=== PATIENT | male | born 1975 | race Caucasian/White ===

== ENCOUNTER 2022-03-09 17:00 | Emergency (ER) | payer OTHER, SELFPAY ==
--- NOTE | ~2022-03-09 | XR_ITS ---
XR ankle RT min 3V 03/09/2022 17:16 Indication: Right ankle pain after fall Procedure: 4 views right ankle Comparison: 03/07/2014 Findings: No acute fracture, subluxation or dislocation. There is an accessory ossicle at the medial malleolus. Ankle mortise intact. No significant soft tissue abnormality. No foreign body. Impression: 1: No acute bone or joint abnormality. Reviewed, dictated and finalized at location A. Impression: 1: No acute bone or joint abnormality.
[2022-03-09 17:05] VITALS: BP 137/100; PULSE 78; RESP 16; TEMP 36.5; O2SAT 98
--- NOTE | 2022-03-09 17:22 | ED.LOWEXIN ---
HPI - Extremity Injury (Lower) General Chief Complaint: Extremity Injury, Lower Stated Complaint: Rt Ankle Pain Source: patient, RN notes reviewed and old records reviewed Mode of arrival: ambulatory Limitations: no limitations History of Present Illness HPI Narrative: 46 year old male presents to [facility] care with complaints of injury to his right ankle foot on Tuesday. Patient reports that he did not see the hole in the yard he was walking through and his foot turned in on itself. Patient reports that he is able to walk on his right foot without acute pain states mainly feels stiffness to his right lateral ankle and anterior proximal foot region. Patient has strong pulses to his right foot, nail beds have brisk capillary refill. Patient reports that he has rested his right foot and ankle and has used ice to his ankle and foot. MD complaint: ankle injury (lateral) and foot injury (proximal) Onset (ago): day(s) (3) Treatments prior to arrival: cold therapy and other (rest) Related Data Allergies Allergy/AdvReac Type Severity Reaction Status Date / Time No Known Allergies Allergy Verified 03/09/22 17:09 Review of Systems Review of Systems: CONSTITUTIONAL: Denies fever, chills, or sweats. EYES: Denies visual changes, redness, or discharge. ENT: Denies rhinorrhea, congestion, sore throat, or otalgia. CARDIOVASCULAR: Denies chest pain, palpitations, or edema. RESPIRATORY: Denies cough or dyspnea. GASTROINTESTINAL: Denies abdominal pain, nausea, vomiting, or diarrhea. GENITOURINARY: Denies dysuria or hematuria. SKIN: Denies rash or itching. MUSCULOSKELETAL: Denies back pain,positive for right lateral ankle and proximal foot pain, stiffness and swelling., or myalgia. NEUROLOGIC: Denies headache, numbness, or weakness. PSYCHIATRIC: Denies anxiety or depression. All systems reviewed & are unremarkable except as noted in HPI and below PMFSH Past Medical History Medical History BMI 27.0-27.9,adult BMI 28.0-28.9,adult BMI 29.0-29.9,adult COVID Gout Surgical History Surgical History H/O wrist surgery History of eye surgery Family History Family History Father Atherosclerotic heart disease of nonautologous biological bypass graft Celiac disease Mother Hypertension Sibling No problems noted. 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 There is no relevant family history pertinent to the presenting complaint Exam Narrative: GENERAL: Well-appearing, well-nourished, and in no acute distress. HEAD: Normocephalic, atraumatic. EYES: PERRLA and EOMI. ENT: Nares clear, no rhinorrhea or epistaxis. Mucous membranes moist.TM's normal with good light reflex, throat pink with no lesions or exudates no tonsil swelling NECK: Supple.no lymphadenopathy CHEST: Clear to auscultation. No respiratory distress.SAO2 98% on room air HEART: Regular rate and rhythm. No murmur heard. Normal peripheral pulses. ABDOMEN: Soft, nontender, nondistended, normal active bowel sounds. EXTREMITIES: Normal range of motion. No edema. Minimal edema noted on palpation of lateral right ankle and proximal foot with full ROM noted, circulation and sensation is intact. SKIN: Warm, dry, no rash. NEURO: No focal deficits. Alert and oriented x3. Course Course Level of Care: Express Care Visit Vital Signs Vital signs: Vital Signs Temperature 36.5 C 03/09/22 17:05 P
[2022-03-09 17:44] VITALS: BP 160/100
== END 2022-03-09 17:44 | disposition home or self-care (01) ==
PROVIDERS: Emergency Provider Registered Nurse; PCP Family Medicine
DX: S93.401A Sprain of unspecified ligament of right ankle, initial encounter (principal); X50.9XXA Other and unspecified overexertion or strenuous movements or postures, initial encounter; M10.9 Gout, unspecified; Z86.16 Personal history of COVID-19; Z87.891 Personal history of nicotine dependence
CPT/HCPCS: 73610; 99213; G0463

== ENCOUNTER 2022-07-14 11:13 | Emergency (ER) | payer OTHER, SELFPAY ==
--- NOTE | ~2022-07-14 | XR_ITS ---
EXAMINATION: XR chest 2V 07/14/2022 11:59 INDICATION: Cough and chest pain PROCEDURE: 2 view chest COMPARISON: No prior studies for comparison. FINDINGS: The lungs are clear. The cardiomediastinal silhouette is within normal limits. There are no pleural effusions. There is no pneumothorax suspected. IMPRESSION: 1: NO ACUTE CARDIOPULMONARY DISEASE. Reviewed, dictated and finalized at location A. [place]
--- NOTE | 2022-07-14 11:25 | ED.URI ---
HPI - URI/Sore Throat General Chief Complaint: Upper Respiratory Infection Stated Complaint: cough,headache,fatigue,chest pain Time Seen by Provider: 07/14/22 11:24 Source: patient Mode of arrival: ambulatory Limitations: no limitations History of Present Illness HPI Narrative: Rasheed is a 46-year-old male patient presenting to the clinic today with complaints of headache, cough, fatigue, and chest pain that has been ongoing for 1 month. He reports Beginning this month he tested positive for influenza B and he has been feeling ill ever since. He reports his symptoms have improved but they kind of come and go. He reports mild headache, cough, feeling fatigue and some upper mid epigastric chest discomfort. States that there feels as though there is a pressure in this area. He denies any shortness of breath or fever currently. MD elicited complaint: sore throat and nasal congestion Related Data Allergies Allergy/AdvReac Type Severity Reaction Status Date / Time No Known Allergies Allergy Verified 03/09/22 17:09 Review of Systems Review of Systems: Pertinent positives per HPI. Patient denies any fever, chills, rash, headache, visual changes, dizziness, shortness of breath, palpitations, nausea, vomiting, diarrhea, constipation, abdominal pain, or any urinary issues. [facility] Past Medical History Medical History BMI 27.0-27.9,adult BMI 28.0-28.9,adult BMI 29.0-29.9,adult COVID Gout Surgical History Surgical History H/O wrist surgery History of eye surgery Family History Family History Father Atherosclerotic heart disease of nonautologous biological bypass graft Celiac disease Mother Hypertension Sibling No problems noted. 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 There is no relevant family history pertinent to the patient complaint. Exam Narrative: General: Well-developed, well nourished, in no apparent distress Head: Normocephalic, atraumatic Eyes: Pupils equally round and reactive to light bilaterally, EOM intact, sclera and conjunctive clear, no discharge, lids normal Ears: TMs intact and clear, ear canals clear, no drainage, grossly hearing normal. Nose: Nares patent, clear discharge, no inflammation, no sinus tenderness. Mouth: Oral pharynx without lesions or masses, good dentition, MMM. postnasal drip Neck: Supple, trachea midline, no enlargement of anterior or posterior cervical nodes, no thyroid masses or goiter palpable. Cardio: Regular rate and rhythm, s1 and s2 normal, no murmur appreciated. Resp: Faint crackle in the right lower base otherwise clear, no rhonchi, rales, wheezing or rubs Course Course Emergency Course: Portions of this record may have been created with voice recognition software. Level of Care: Express Care Visit Vital Signs Vital signs: Vital Signs Temperature 36.9 C 07/14/22 11:36 Pulse Rate 73 07/14/22 11:36 Respiratory Rate 18 07/14/22 11:36 Blood Pressure 148/97 H 07/14/22 11:36 Pulse Oximetry 100 07/14/22 11:36 Oxygen Delivery Room Air 07/14/22 11:36 Temperature 36.9 C 07/14/22 11:36 Pulse Rate 73 07/14/22 11:36 Respiratory Rate 18 07/14/22 11:36 Blood Pressure 148/97 H 07/14/22 11:36 Pulse Oximetry 100 07/14/22 11:36 Oxygen Delivery Room Air 07/14/22 11:36 Vital signs reviewed MDM - UR
[2022-07-14 11:36] VITALS: BP 148/97; PULSE 73; RESP 18; TEMP 36.9; O2SAT 100
--- NOTE | 2022-07-14 11:51 | ECG_ITS ---
Measurements Intervals [place] Rate: 66 P: 44 [place]: 173 QRS: -19 QRSD: 144 T: 102 QT: 413 QTc: 433 Interpretive Statements SINUS RHYTHM LEFT BUNDLE BRANCH BLOCK ABNORMAL ECG NO PREVIOUS ECG AVAILABLE FOR COMPARISON Electronically Signed On 07-14-2022 12:39:11 LICENSED [employer] by El Dent D.O.
== END 2022-07-14 12:23 | disposition home or self-care (01) ==
PROVIDERS: Emergency Provider Nurse Practitioner Family; PCP Family Medicine
DX: G93.31 Postviral fatigue syndrome (principal); R05.9 Cough, unspecified; I44.7 Left bundle-branch block, unspecified; Z87.891 Personal history of nicotine dependence; M10.9 Gout, unspecified; Z86.16 Personal history of COVID-19
CPT/HCPCS: 71046; 93005; 99213; G0463

== ENCOUNTER 2022-12-18 12:52 | Emergency (ER) | payer OTHER, SELFPAY ==
--- NOTE | ~2022-12-18 | XR_ITS ---
EXAMINATION: XR ankle LT min 3V DATE: 12/18/2022 13:11 INDICATION: Left ankle injury and pain. TECHNIQUE: 4 views of left ankle were obtained. COMPARISON: None. FINDINGS: Bone alignment is normal. No fracture. Joint spaces are normal. There is an enthesophyte at posterior aspect of calcaneal tuberosity. There is ankle soft tissue swelling. IMPRESSION: 1. No fracture. Reviewed, dictated and finalized at location A. IMPRESSION: 1. No fracture.
--- NOTE | 2022-12-18 13:00 | ED.GENADULT ---
HPI - General Adult General Chief complaint: Extremity Injury, Lower Stated complaint: Lt Ankle Pain Time Seen by Provider: 12/18/22 13:01 Source: patient Mode of arrival: ambulatory Limitations: no limitations History of Present Illness HPI narrative: 47-year-old male patient presents to [facility] with complaints of left ankle pain. Patient states he stepped on an uneven surface yesterday and rolled his ankle. Patient states he did fall denies hitting his head or loss of consciousness. Patient states he has taken some ibuprofen for the pain and did ice it last night and this morning. Related Data Allergies Allergy/AdvReac Type Severity Reaction Status Date / Time No Known Allergies Allergy Verified 12/18/22 12:54 Review of Systems Review of Systems: CONSTITUTIONAL: Denies fever, chills, or sweats. EYES: Denies visual changes, redness, or discharge. ENT: Denies rhinorrhea, congestion, sore throat, or otalgia. CARDIOVASCULAR: Denies chest pain, palpitations, or edema. RESPIRATORY: Denies cough or dyspnea. GASTROINTESTINAL: Denies abdominal pain, nausea, vomiting, or diarrhea. GENITOURINARY: Denies dysuria or hematuria. SKIN: Denies rash or itching. MUSCULOSKELETAL: Denies back pain, joint pain, or myalgia. Positive left ankle pain NEUROLOGIC: Denies headache, numbness, or weakness. PSYCHIATRIC: Denies anxiety or depression. [facility] Past Medical History Medical History BMI 27.0-27.9,adult BMI 28.0-28.9,adult BMI 29.0-29.9,adult COVID Gout Surgical History Surgical History H/O wrist surgery History of eye surgery Family History Family History Father Atherosclerotic heart disease of nonautologous biological bypass graft Celiac disease Mother Hypertension Sibling No problems noted. 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 There is no relevant family history pertinent to the presenting complaint. Exam Narrative: GENERAL: Well-appearing, well-nourished, and in no acute distress. HEAD: Normocephalic, atraumatic. EYES: PERRLA and EOMI. ENT: Nares clear, no rhinorrhea or epistaxis. Mucous membranes moist. NECK: Supple. No lymphadenopathy CHEST: Clear to auscultation. No respiratory distress. HEART: Regular rate and rhythm. No murmur heard. Normal peripheral pulses. ABDOMEN: Soft, nontender, nondistended, normal active bowel sounds. EXTREMITIES: Patient is able to bear weight and ambulate with pain. The L ankle is without obvious asymmetry or deformity when compared to the R ankle. Patient can flex/extend, invert/fiona. No ecchymosis, soft tissue swelling noted to the lateral side of the left ankle. laura tenderness to palpation over the lateral malleolus. Anterior talofibular ligament, posterior talofibular ligament, calcaneofibular ligament nontender and without swelling. No tenderness or deformity of the midfoot or over the proximal fifth metatarsal. Good DP and posterior tibial pulses and sensation to light touch
[2022-12-18 13:01] VITALS: BP 136/89; PULSE 88; RESP 18; TEMP 36.6; O2SAT 99
== END 2022-12-18 13:25 | disposition home or self-care (01) ==
PROVIDERS: Emergency Provider Nurse Practitioner Family; PCP Family Medicine
DX: S93.402A Sprain of unspecified ligament of left ankle, initial encounter (principal); Z87.891 Personal history of nicotine dependence; X50.0XXA Overexertion from strenuous movement or load, initial encounter
CPT/HCPCS: 73610; 99213; G0463

== ENCOUNTER 2023-04-22 08:24 | Emergency (ER) | payer OTHER, SELFPAY ==
--- NOTE | 2023-04-22 08:28 | ED.URI ---
HPI - URI/Sore Throat General Chief Complaint: Upper Respiratory Infection Stated Complaint: Headahce,Fatigue,Congestion Time Seen by Provider: 04/22/23 08:40 Source: patient, RN notes reviewed and old records reviewed Mode of arrival: ambulatory Limitations: no limitations History of Present Illness HPI Narrative: 47-year-old male presents to the [facility] with complaints of headache, fatigue, congestion, decreased appetite, cough since Tuesday. Was exposed to COVID on Tuesday, day 4 days ago. Repeats feeling feverish. Has taken ibuprofen Onset (ago): day(s) (2) Consistency: constant Treatments prior to arrival: ibuprofen Related Data Allergies Allergy/AdvReac Type Severity Reaction Status Date / Time No Known Allergies Allergy Verified 04/22/23 08:29 Review of Systems Review of Systems: All systems reviewed & are unremarkable except as noted in HPI and below Constitutional: Constitutional: Reports as per HPI, Reports body ache(s), Reports fever(s) (Subjective), Reports headache(s) and Reports poor appetite Eyes: Eyes: Reports no additional eye complaints ENT: Reports as per HPI and Reports headache(s) Cardiovascular: Cardiovascular: Reports no additional cardiovascular complaints, Denies chest pain and Denies dyspnea Respiratory: Respiratory: Reports as per HPI, Denies chest congestion, Reports cough and Denies dyspnea Gastrointestinal: Gastrointestinal: Reports no additional gastrointestinal complaints, Denies abdominal pain, Denies nausea and Denies vomiting Musculoskeletal: Musculoskeletal: Reports no additional musculoskeletal complaints Integumentary/Breasts: Skin/Breast: Reports system reviewed and no additional complaints, except as docu Neurologic: Reports system reviewed and no additional complaints, except as documented Psychiatric: Psychiatric: Reports no additional psychiatric complaints Allergic/Immunologic: Allergic/Immunologic: Reports no additional allergic/immunologic complaints [facility] Past Medical History Medical History BMI 27.0-27.9,adult BMI 28.0-28.9,adult BMI 29.0-29.9,adult COVID Gout Surgical History Surgical History H/O wrist surgery History of eye surgery Family History Family History Father Atherosclerotic heart disease of nonautologous biological bypass graft Celiac disease Mother Hypertension Sibling No problems noted. 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 There is no relevant family history pertinent to the patient complaint. Exam Const: General: cooperative, comfortable, no acute distress, well developed, alert, ill appearing acutely (mild) and well nourished Nutritional Appearance: well nourished Orientation/consciousness: patient oriented x3 Limitations: no limitations HENMT: Head: normal to inspection Ears: hearing grossly normal bilaterally, external ears normal, TM's normal bilaterally, EAC's normal and mastoids normal Face/Nose/Sinus: Normal exter
[2023-04-22 08:45] VITALS: BP 143/90; PULSE 100; RESP 18; TEMP 37.2; O2SAT 100
== END 2023-04-22 09:25 | disposition home or self-care (01) ==
PROVIDERS: Emergency Provider Nurse Practitioner; PCP Family Medicine
DX: B34.9 Viral infection, unspecified (principal); Z20.822 Contact with and (suspected) exposure to COVID-19; Z87.891 Personal history of nicotine dependence; M10.9 Gout, unspecified; Z86.16 Personal history of COVID-19
CPT/HCPCS: 87426; 87804; 99213; C9803; G0463

== ENCOUNTER 2023-04-30 13:59 | Emergency (ER) | payer OTHER, SELFPAY ==
--- NOTE | ~2023-04-30 | XR_ITS ---
XR chest 2V DATE: 04/30/2023 14:32 INDICATION: Cough, congestion, shortness of breath TECHNIQUE: 2 views COMPARISON: 07/14/2022 2 view chest FINDINGS: There is patchy left lower lobe infiltrate consistent with left lower lobe pneumonia. There may be slight infiltrate or atelectasis at the right lung base. The remaining lung merchant appear ess entially clear. Normal heart size. No hilar or mediastinal enlargement. No pleural effusion or pulmonary vascular congestion or pneumothorax. IMPRESSION: Left lower lobe infiltrate Minimal infiltrate or atelectasis at right lung base Reviewed, dictated and finalized at location A.
[2023-04-30 14:12] VITALS: BP 111/90; PULSE 89; RESP 22; TEMP 36.4; O2SAT 95
--- NOTE | 2023-04-30 14:16 | ED.SOB ---
HPI - SOB/Dyspnea General Chief Complaint: Upper Respiratory Infection Stated Complaint: cough,chest pain,fatigue Time Seen by Provider: 04/30/23 14:15 Source: patient Mode of arrival: ambulatory Limitations: no limitations History of Present Illness HPI Narrative: Rasheed is a 47-year-old male patient presenting to the clinic today with complaints of cough, chest pain, and fatigue 2 weeks. Reports he came in on April 20 and was tested were COVID and flu and was negative at that time. States he has gradually gotten worse with now I productive cough, chest discomfort, and fatigue. SpO2 is 95-96 on room air. Is having to speak in short sentences Related Data Allergies Allergy/AdvReac Type Severity Reaction Status Date / Time No Known Allergies Allergy Verified 04/30/23 14:11 Review of Systems Review of Systems: Pertinent positives per HPI. Patient denies any fever, chills, rash, headache, visual changes, dizziness, cough, shortness of breath, chest pain, palpitations, nausea, vomiting, diarrhea, constipation, abdominal pain, or any urinary issues. [facility] Past Medical History Medical History BMI 27.0-27.9,adult BMI 28.0-28.9,adult BMI 29.0-29.9,adult COVID Gout Surgical History Surgical History H/O wrist surgery History of eye surgery Family History Family History Father Atherosclerotic heart disease of nonautologous biological bypass graft Celiac disease Mother Hypertension Sibling No problems noted. 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 There is no relevant family history pertinent to the patient complaint. Exam Narrative: General: Well-developed, well nourished, in no apparent distress Head: Normocephalic, atraumatic Eyes: Pupils equally round and reactive to light bilaterally, EOM intact, sclera and conjunctive clear, no discharge, lids normal Ears: TMs intact and clear, ear canals clear, no drainage, grossly hearing normal. Nose: Nares patent, clear discharge, no inflammation, no sinus tenderness. Mouth: Oral pharynx without lesions or masses, good dentition, MMM. Neck: Supple, trachea midline, no enlargement of anterior or posterior cervical nodes, no thyroid masses or goiter palpable. Cardio: Regular rate and rhythm, s1 and s2 normal, no murmur appreciated. Resp: Crackles to the lower posterior lung and inspiratory wheezing, no rubs Course Course Emergency Course: Portions of this record may have been created with voice recognition software. Level of Care: Express Care Visit Vital Signs Vital signs: Vital Signs Temperature 36.4 C L 04/30/23 14:12 Pulse Rate 89 04/30/23 14:12 Respiratory Rate 22 H 04/30/23 14:12 Blood Pressure 111/90 04/30/23 14:12 Pulse Oximetry 95 04/30/23 14:12 Oxygen Delivery Room Air 04/30/23 14:12 Temperature 36.4 C L 04/30/23 14:12 Pulse Rate 89 04/30/23 14:12 Respiratory Rate 22 H 04/30/23 14:12 B
== END 2023-04-30 14:55 | disposition home or self-care (01) ==
PROVIDERS: Emergency Provider Nurse Practitioner Family; PCP Family Medicine
DX: J18.9 Pneumonia, unspecified organism (principal); Z87.891 Personal history of nicotine dependence; M10.9 Gout, unspecified; Z86.16 Personal history of COVID-19
CPT/HCPCS: 71046; 99213; G0463

== ENCOUNTER 2023-05-02 14:13 | Emergency (ER) | payer OTHER, SELFPAY ==
[2023-05-02] VITALS (19 sets, daily range): BP systolic 122–142; BP diastolic 92–109; PULSE 77–97; RESP 10–24; TEMP 36.9; O2SAT 96–98
--- NOTE | ~2023-05-02 | XR_ITS ---
EXAMINATION: XR chest 2V DATE: 05/02/2023 15:01 INDICATION: Chest pressure. TECHNIQUE: Frontal and lateral views of the chest were obtained. COMPARISON: Chest 2 views 04/30/2023 FINDINGS: There are mild airspace opacities in left lower lung zone. No pleural effusion or pneumotho rax. The heart size is normal. IMPRESSION: 1. Persistent airspace opacities in left lower lung zone, consistent with atelectasis versus pneumoni a. Reviewed, dictated and finalized at location E. IMPRESSION: 1. Persistent airspace opacities in left lower lung zone, consistent with atele ctasis versus pneumonia.
--- NOTE | 2023-05-02 14:32 | ECG_ITS ---
Measurements Intervals [place] Rate: 90 P: 42 [place]: 166 QRS: -35 QRSD: 140 T: 111 QT: 368 QTc: 452 Interpretive Statements SINUS RHYTHM LEFT AXIS DEVIATION LEFT ATRIAL ENLARGEMENT LEFT BUNDLE BRANCH BLOCK ABNORMAL ECG COMPARED TO ECG 07/14/2022 11:50:28 LEFT-AXIS DEVIATION NOW PRESENT Electronically Signed On 05-02-2023 14:41:44 CDT by El Dent D.O.
[2023-05-02 14:52] LABS: Basophils Absolute Auto 0.1 K/mm3 (0.0-0.1); Basophils Percent Auto 0.7 % (0.2-1.2); Eosinophils Absolute Auto 0.1 K/mm3 (0-0.3); Eosinophils Percent Auto 1.6 % (0-4.4); Hematocrit 38.8 % (42.0-52.0); Hemoglobin 14.3 g/dL (14.0-18.0); Immature Granulocyte Absolute 0.07 K/mm3 (0.00-0.031); Immature Granulocyte Percent A 0.8 % (0-0.5); Lymphocytes Absolute Auto 1.94 K/mm3 (0.9-3.2); Lymphocytes Percent Auto 21.6 % (18.3-44.2); Mean Corpuscular HGB Conc 36.9 g/dl (32-36); Mean Corpuscular Hemoglobin 34.5 pg (26-34); Mean Corpuscular Volume 93.7 fl (80-100); Mean Platelet Volume 9.4 fl (7.4-10.4); Monocytes Absolute Auto 0.6 K/mm3 (0.1-0.6); Monocytes Percent Auto 6.4 % (2.6-8.5); Neutrophils Absolute Auto 6.2 K/mm3 (1.3-6.7); Neutrophils Percent Auto 68.9 % (45.5-73.1); Platelet Count Result 268 k/mm3 (150-375); Red Blood Count 4.14 M/mm3 (4.6-6.20); Red Cell Distribution Width 12.3 % (11.5-14.5)
[2023-05-02 15:03] LABS: Alanine Aminotransferase 58 U/L (6-50); Albumin Level 4.4 g/dL (3.5-5.1); Alkaline Phosphatase 67 U/L (38-126); Anion Gap 8 mmol/L (8-16); Aspartate Amino Transferase 39 U/L (17-59); Bilirubin,Total 0.7 mg/dL (0.2-1.3); Blood Urea Nitrogen 16 mg/dL (9-20); Calcium 9.4 mg/dL (8.4-10.2); Carbon Dioxide 28 mmol/L (22-30); Chloride 103 mmol/L (98-107); Estimated CRCL calculation 93 ml/min; Estimated Glomerular Filt Rate > 60; Glucose 111 mg/dL (65-110); Lipase 147 U/L (23-300); Potassium 4.2 mmol/L (3.4-5.0); Prothrombin Time 14.1 Seconds (11.1-14.7); Sodium 139 mmol/L (137-145)
[2023-05-02 15:04] LABS: Partial Thromboplastin Time 27.8 SECONDS (22.3-36.8)
[2023-05-02 15:15] LABS: Troponin I < 0.012 ng/mL (0.000-0.034)
--- NOTE | 2023-05-02 15:31 | ED.CHESTPAIN ---
HPI - Chest Pain General Chief Complaint: Chest Pain Stated Complaint: chest congestion, cough (diag w/ pneumonia Sat) Time Seen by Provider: 05/02/23 15:10 History of Present Illness HPI narrative: 47-year-old male with a history of hyperlipidemia hypertension reports for evaluation for chest pressure, cough and congestion x2 weeks. Patient states he began developing symptoms about 2 weeks ago, he went to urgent care 2 days ago and was diagnosed with pneumonia. He was prescribed azithromycin, albuterol and Augmentin which he has been taking. He has not missed any doses. He states he is feeling better today, however his advised him to come to the ED because of his history of a left bundle branch block and his concern for a cardiac etiology causing his symptoms. He states he was having shortness of breath that is also improved today. No aggravating or alleviating factors. He denies radiation of chest pain, pleuritic chest pain, associated nausea or vomiting, palpitations or syncope. He is scheduled to see a appraisal specialist in June for further evaluation of his left bundle branch block. He does report his dad has a history of CAD and MIs. Related Data Allergies Allergy/AdvReac Type Severity Reaction Status Date / Time No Known Allergies Allergy Verified 05/02/23 14:52 Review of Systems Review of Systems: CONSTITUTIONAL: Denies fever, chills EYES: Denies visual changes, redness, or discharge. ENT: Denies rhinorrhea, congestion, sore throat, or otalgia. CARDIOVASCULAR: See HPI RESPIRATORY see HPI GASTROINTESTINAL: Denies abdominal pain, nausea, vomiting, or diarrhea. GENITOURINARY: Denies dysuria or hematuria. SKIN: Denies rash or itching. MUSCULOSKELETAL: Denies back pain, joint pain, or myalgia. NEUROLOGIC: Denies headache, numbness, dizziness, or weakness. PSYCHIATRIC: Denies anxiety or depression. [facility] Past Medical History Medical History BMI 27.0-27.9,adult BMI 28.0-28.9,adult BMI 29.0-29.9,adult COVID Gout Surgical History Surgical History H/O wrist surgery History of eye surgery Family History Family History Father Atherosclerotic heart disease of nonautologous biological bypass graft Celiac disease Mother Hypertension Sibling No problems noted. 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 Patient resting comfortably in exam bed. He is pleasant and conversational. HEAD: Normocephalic EYES: PERRLA ENT: Nares clear. Mucous membranes moist. Oropharynx without tonsillar hypertrophy exudate or other lesions. NECK: Supple. CHEST: No respiratory distress. Rhonchi in the right lower lung field. Otherwise no adventitious breath sounds. HEART: Regular rate and rhythm. No murmur heard. Normal peripheral pulses. ABDOMEN: Soft, nontender, normal active bowel sounds. EXTREMITIES: Normal range of motion. No edema. SKIN: Warm, dry, no rash. NEURO: No focal deficits. Alert and oriented x3. PSYCH: Normal mood and affect. Course Vital Signs Vital s
[2023-05-02 18:10] LABS: Troponin I < 0.012 ng/mL (0.000-0.034)
== END 2023-05-02 18:44 | disposition home or self-care (01) ==
PROVIDERS: Preventive Medicine Aerospace Medicine; Emergency Provider Physician Assistant; PCP Family Medicine
DX: R07.89 Other chest pain (principal); J18.9 Pneumonia, unspecified organism; E78.5 Hyperlipidemia, unspecified; I10 Essential (primary) hypertension; I44.7 Left bundle-branch block, unspecified; M10.9 Gout, unspecified; Z86.16 Personal history of COVID-19; Z87.891 Personal history of nicotine dependence; R94.31 Abnormal electrocardiogram [ECG] [EKG]
CPT/HCPCS: 36415; 71046; 80053; 83690; 84484; 85025; 85610; 85730; 93005; 99284

== ENCOUNTER 2023-05-17 14:28 | Outpatient (CLI) | payer OTHER, SELFPAY ==
--- NOTE | ~2023-05-17 | XR_ITS ---
XR chest 2V DATE: 05/17/2023 14:46 INDICATION: Pneumonia TECHNIQUE: PA and lateral views COMPARISON: 05/02/2023 2 view chest FINDINGS: Diminished airspace opacities in the left lower lung suggesting interval improvement of lef t lower lobe infiltrate or atelectasis. The lungs otherwise appear clear. No pleural effusion or pulmonary vascular congestion or pneumothora x. Normal heart size. No hilar or mediastinal enlargement. IMPRESSION: Improvement of left lower lobe infiltrate or atelectasis since 05/02/2023 Reviewed, dictated and finalized at location L.
== END 2023-05-17 14:29 | disposition home or self-care (01) ==
PROVIDERS: PCP Family Medicine; Visit Provider Physician Assistant Medical
DX: J18.9 Pneumonia, unspecified organism (principal); R91.8 Other nonspecific abnormal finding of lung field
CPT/HCPCS: 71046

== ENCOUNTER 2023-05-17 16:26 | Emergency (ER) | payer OTHER, SELFPAY ==
[2023-05-17 17:01] VITALS: BP 123/82; PULSE 79; RESP 18; TEMP 36.6; O2SAT 97
--- NOTE | 2023-05-17 17:05 | ED.URI ---
HPI - URI/Sore Throat General Chief Complaint: Upper Respiratory Infection Stated Complaint: flu-like symptoms Source: patient Mode of arrival: ambulatory Limitations: no limitations History of Present Illness HPI Narrative: 47-year-old male who has been treated for pneumonia presented for complaint of cough, occasional wheezing, and feeling 'like breathing in a paper bag.' Symptoms worsening x3 days. Cough is worse at night and is keeping him awake. States symptoms started again after completing a course of steroids as prescribed by pcp, after completing Augmentin and Zpack. Also has albuterol inhaler and has been using it prn. Using incentive spirometer since dx pneumonia 04/30/23. Since then he has been compliant with meds as prescribed, and reports improvement in most symptoms. Cough is nonproductive. Denies fatigue, n/v/d/f/c. States he had CXR today as ordered by pcp, but is unable to be treated until seen by them next week. Related Data Allergies Allergy/AdvReac Type Severity Reaction Status Date / Time No Known Allergies Allergy Verified 05/10/23 07:42 Review of Systems Review of Systems: CONSTITUTIONAL: Denies body aches, fever, chills, or sweats. EYES: Denies visual changes, redness, or discharge. ENT: Denies rhinorrhea, congestion, sore throat, or otalgia. CARDIOVASCULAR: Denies chest pain, palpitations, or edema. RESPIRATORY: Reports cough, sob, wheezing. GASTROINTESTINAL: Denies abdominal pain, nausea, vomiting, or diarrhea. GENITOURINARY: Denies dysuria or hematuria. SKIN: Denies rash, itching, or wounds. MUSCULOSKELETAL: Denies back pain, joint pain, or myalgia. NEUROLOGIC: Denies headache, numbness, tingling, or weakness. All systems reviewed & are unremarkable except as noted in HPI and below PMFSH Past Medical History Medical History BMI 26.0-26.9,adult COVID Gout Surgical History Surgical History H/O wrist surgery History of eye surgery Family History Family History Father Atherosclerotic heart disease of nonautologous biological bypass graft Celiac disease Mother Hypertension Sibling No problems noted. 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 Please see nursing chart for further information. There is no relevant family history pertinent to the presenting complaint Exam Narrative: GENERAL: Well-appearing, in no acute distress. EYES: EOMI. No redness or drainage. Conjunctivae normal. ENT: Mucous membranes pink and moist. NECK: Normal AROM. Supple. CHEST: No respiratory distress. Scattered Faint insp/exp wheezing to right posterior merchant HEART: Regular rate and rhythm. No murmur appreciated. ABDOMEN: Soft, nontender, nondistended, normal active bowel sounds. EXTREMITIES: Normal range of motion. No edema. SKIN: Warm, dry, no rash. Capillary refill normal. Normal skin turgor. NEURO: Alert and oriented x3. Gait steady. PSYCH: Normal affect. Course
== END 2023-05-17 17:23 | disposition home or self-care (01) ==
PROVIDERS: Emergency Provider Nurse Practitioner Family; PCP Family Medicine
DX: J40 Bronchitis, not specified as acute or chronic (principal); Z87.891 Personal history of nicotine dependence
CPT/HCPCS: 71046; 99213; G0463

== ENCOUNTER 2023-09-27 17:22 | Emergency (ER) | payer OTHER, SELFPAY ==
--- NOTE | 2023-09-27 17:30 | ED.URI ---
HPI - URI/Sore Throat General Chief Complaint: Upper Respiratory Infection Stated Complaint: sorethroat Time Seen by Provider: 09/27/23 17:30 Source: patient Mode of arrival: ambulatory Limitations: no limitations History of Present Illness HPI Narrative: Patient is a 48-year-old male that presents with 1 week of congestion, productive cough, sore throat and sinus pressure. Has been taking Mucinex. Denies any fever, chills, nausea, vomiting, diarrhea. Related Data Home Medications Medication Instructions Recorded Confirmed amlodipine 5 mg tablet 5 mg PO DAILY 09/27/23 09/27/23 Allergies Allergy/AdvReac Type Severity Reaction Status Date / Time No Known Allergies Allergy Verified 09/27/23 17:35 Review of Systems Review of Systems: All systems reviewed & are unremarkable except as noted in HPI and below Constitutional: Constitutional: Denies body ache(s), Denies chills, Denies fatigue, Denies fever(s), Denies headache(s), Denies malaise and Denies weakness Eyes: Eyes: Denies blurry vision, Denies itchy eyes and Denies loss of vision ENT: Denies otalgia, Denies headache(s), Reports nasal congestion, Denies sinus pain, Reports sinus pressure and Reports sore throat Cardiovascular: Cardiovascular: Denies chest pain, Denies irregular heart rhythm and Denies dyspnea Respiratory: Respiratory: Reports cough and Denies dyspnea Gastrointestinal: Gastrointestinal: Denies abdominal pain, Denies diarrhea, Denies nausea and Denies vomiting Musculoskeletal: Musculoskeletal: Denies back pain, Denies myalgias and Denies arthralgias Integumentary/Breasts: Skin/Breast: Denies pruritus and Denies rash Neurologic: Denies headache(s), Denies loss of vision and Denies weakness Psychiatric: Psychiatric: Reports no additional psychiatric complaints Endocrine: Endocrine: Denies fatigue Allergic/Immunologic: Allergic/Immunologic: Denies itchy eyes PMFSH Past Medical History Medical History BMI 26.0-26.9,adult COVID Gout Surgical History Surgical History H/O wrist surgery History of eye surgery Family History Family History Father Atherosclerotic heart disease of nonautologous biological bypass graft Celiac disease Mother Hypertension Sibling No problems noted. 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 There is no relevant family history pertinent to the presenting complaint. Exam Const: General: cooperative, healthy appearing, comfortable, no acute distress and well nourished Nutritional Appearance: well nourished Orientation/consciousness: patient oriented x3 Limitations: no limitations HENMT: Head: normal to inspection, normocephalic and atraumatic Ears: hearing grossly normal bilaterally, external ears normal, TM's normal bilaterally, EAC's normal and no periauricular adenopathy Face/Nose/Sinus: Normal external nose present, Abnormal mucous membranes and turbinates present erythematous bilateral and diffuse, normal facial exam, sin
[2023-09-27 17:38] VITALS: BP 122/91; PULSE 78; RESP 16; TEMP 36.5; O2SAT 99
== END 2023-09-27 17:50 | disposition home or self-care (01) ==
PROVIDERS: Emergency Provider Nurse Practitioner Family
DX: J06.9 Acute upper respiratory infection, unspecified (principal); Z87.891 Personal history of nicotine dependence
CPT/HCPCS: 99213; G0463

== ENCOUNTER 2024-01-26 12:44 | Emergency (ER) | payer OTHER, SELFPAY ==
[2024-01-26 13:03] VITALS: BP 151/93; PULSE 72; RESP 18; TEMP 36.7; O2SAT 98
--- NOTE | 2024-01-26 13:25 | ED.URI ---
HPI - URI/Sore Throat General Chief Complaint: Upper Respiratory Infection Stated Complaint: Cold symptoms Time Seen by Provider: 01/26/24 13:18 Source: patient, RN notes reviewed and old records reviewed Mode of arrival: ambulatory Limitations: no limitations History of Present Illness HPI Narrative: 48-year-old male to Express Care with complaint of sore throat, headache, chest congestion, mild cough, and fatigue for 2-3 days. Patient has attempted to treat at home with Sudafed without relief. Patient endorses history of bronchitis, pneumonia, hypertension and high cholesterol. Patient endorses family history and concern regarding heart attack and stroke. Patient denies fever, known exposure to illness, tobacco use, allergies, shortness of breath, chest pain. Patient does endorse brief dizziness last night resolved. Respirations even and nonlabored. Patient able to speak in full sentences without difficulty. Patient hypertensive in triage. Related Data Home Medications Medication Instructions Recorded Confirmed amlodipine 5 mg tablet 5 mg PO DAILY 09/27/23 01/26/24 Allergies Allergy/AdvReac Type Severity Reaction Status Date / Time No Known Allergies Allergy Verified 01/26/24 13:13 Review of Systems Review of Systems: All systems reviewed & are unremarkable except as noted in HPI and below Constitutional: Constitutional: Reports as per HPI, Reports fatigue and Reports headache(s) Eyes: Eyes: Reports no additional eye complaints ENT: Reports as per HPI and Reports sore throat Cardiovascular: Cardiovascular: Reports no additional cardiovascular complaints, Denies chest pain and Denies dyspnea Respiratory: Respiratory: Reports no additional respiratory complaints, Reports chest congestion, Reports cough ( Nonproductive) and Denies dyspnea Musculoskeletal: Musculoskeletal: Reports no additional musculoskeletal complaints Neurologic: Reports system reviewed and no additional complaints, except as documented Psychiatric: Psychiatric: Reports no additional psychiatric complaints [facility] Past Medical History Medical History BMI 26.0-26.9,adult COVID Gout Surgical History Surgical History H/O wrist surgery History of eye surgery Family History Family History Father Atherosclerotic heart disease of nonautologous biological bypass graft Celiac disease Mother Hypertension Sibling No problems noted. 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 There is no relevant family history pertinent to the patient complaint. Exam Const: General: cooperative, no acute distress, well developed, alert, tired appearing, well groomed and well nourished Nutritional Appearance: well nourished Orientation/consciousness: patient oriented x3 Limitations: no limitations HENMT: Head: normal to inspection Ears: external ears normal, Abnormal EAC present and TM abnormal dull bilateral, erythematous on the left and wit
== END 2024-01-26 13:44 | disposition home or self-care (01) ==
PROVIDERS: Emergency Provider Nurse Practitioner Family; PCP Family Medicine
DX: H66.93 Otitis media, unspecified, bilateral (principal); Z20.822 Contact with and (suspected) exposure to COVID-19; Z87.891 Personal history of nicotine dependence; Z86.16 Personal history of COVID-19
CPT/HCPCS: 87081; 87426; 87804; 87880; 99213; G0463

== ENCOUNTER 2024-05-07 10:20 | Emergency (ER) | payer OTHER, SELFPAY ==
[2024-05-07 10:41] VITALS: BP 151/98; PULSE 64; RESP 18; TEMP 36.6; O2SAT 98
--- NOTE | 2024-05-07 11:06 | ED.URI ---
HPI - URI/Sore Throat General Chief Complaint: Upper Respiratory Infection Stated Complaint: cough/ headache Time Seen by Provider: 05/07/24 10:55 Source: patient and RN notes reviewed Mode of arrival: ambulatory Limitations: no limitations History of Present Illness HPI Narrative: Patient presents today complaining of 3 day history of sore throat, headache, dry cough, fatigue. Denies fever shortness of breath. He has been taking Yasemin-Nebo Plus and ibuprofen with mild relief. Daughter was diagnosed with mycoplasma pneumoniae upper respiratory infection a few days ago and has been in the hospital with Orthopedic surgery. Related Data Home Medications Medication Instructions Recorded Confirmed amlodipine 5 mg tablet 5 mg PO DAILY 09/27/23 01/26/24 Allergies Allergy/AdvReac Type Severity Reaction Status Date / Time No Known Allergies Allergy Verified 05/07/24 10:39 Review of Systems Review of Systems: CONSTITUTIONAL: Denies body aches, fever, chills, or sweats.+ fatigue EYES: Denies visual changes, redness, or discharge. ENT: Denies rhinorrhea, or otalgia.+ sore throat CARDIOVASCULAR: Denies chest pain, palpitations, or edema. RESPIRATORY: Denies dyspnea.+ cough GASTROINTESTINAL: Denies abdominal pain, nausea, vomiting, or diarrhea. GENITOURINARY: Denies dysuria or hematuria. SKIN: Denies rash, itching, or wounds. MUSCULOSKELETAL: Denies back pain, joint pain, or myalgia. NEUROLOGIC: Denies numbness, tingling, or weakness.+ headache PSYCH: Denies depression or anxiety. [facility] Past Medical History Medical History BMI 26.0-26.9,adult COVID Gout Surgical History Surgical History H/O wrist surgery History of eye surgery Family History Family History Father Atherosclerotic heart disease of nonautologous biological bypass graft Celiac disease Mother Hypertension Sibling No problems noted. 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 Please see nursing chart for further information. There is no relevant family history pertinent to the presenting complaint Exam Narrative: GENERAL: Mildly ill-appearing, well-nourished, and in no acute distress. HEAD: Normocephalic, atraumatic. EYES: EOMI. No redness or drainage. Conjunctivae normal. ENT: Mucous membranes pink and moist. Nares mildly congested. No rhinorrhea. TMs normal bilaterally. Throat normal. Uvula midline. NECK: Normal AROM. Supple. No lymphadenopathy. CHEST: No respiratory distress. Clear to auscultation. HEART: Regular rate and rhythm. No murmur appreciated. EXTREMITIES: Normal range of motion. No edema. SKIN: Warm, dry, no rash. Capillary refill normal. Normal skin turgor. NEURO: No focal deficits. Alert and oriented x3. Gait steady. PSYCH: Normal affect. No signs of depression or anxiety. Course Course Level of Care: Express Care Visit Vital Signs Vital signs: Vital Signs
[2024-05-07 11:07] LABS: EDCOVIDSCREEN Negative (Negative); EDINFLUASCREEN Negative (Negative); EDINFLUBSCREEN Negative (Negative)
[2024-05-07 11:08] LABS: EDSTREPNEGPOS1 Negative (Negative)
== END 2024-05-07 11:13 | disposition home or self-care (01) ==
PROVIDERS: Emergency Provider Nurse Practitioner
DX: J06.9 Acute upper respiratory infection, unspecified (principal); Z20.822 Contact with and (suspected) exposure to COVID-19; Z87.891 Personal history of nicotine dependence; M10.9 Gout, unspecified; Z86.16 Personal history of COVID-19
CPT/HCPCS: 87081; 87426; 87804; 87880; 99213; G0463

== ENCOUNTER 2025-02-12 16:58 | Emergency (ER) | payer OTHER, BC, SELFPAY ==
--- OUTSIDE RECORDS SUMMARY | 2025-02-12 17:00 | XMS_ITS | Patient Health Record ---
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 Diaz Asher Unavailable [phone] Komal Gates Unavailable [phone] Allergies No Known Allergies Reason For Referral No Information Medications Medication SIG (Take, Route, Frequency, Duration) Notes Start Date End Date Status Allopurinol 300 MG ; Duration: 90 Days Active Rosuvastatin Calcium 20 MG 1 tab(s) orally once a day; Duration: 30 day(s) 12/29/2023 Active amLODIPine Besylate 10 MG 1 tab(s) orall y once a day; Duration: 30 days 5 mg 12/29/2023 Active Metoprolol Succinate ER 25 MG ; Duration: 60 Days Not-Taki ng Benzonatate 100 MG ; Duration: 7 Days Not-Taking Social History Tobacco Use: Social History Observation Description Date Details (start date - stop date) Never Smoker NA - NA Smoking Smart Form: Question Answer Notes Are you a: never smoker Tobacco Control (Standard) Question Answer Notes Tobacco use: Nonsmoker Problems Problem Type SNOMED Code ICD Code Onset Dates Problem Status W/U Status Risk Notes Problem 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 Problem Chronic migraine without aura, non-refractory (disorder) (252011708998407 ) Migraine without aura, not intractable, without status migrainosus (G43.009) Active confirmed Problem Migraine with aura, not intractable, without status migrainosus (G43.109) Active confirmed Problem Chronic urate nephropathy (760960415) Gout due to renal impairment, multiple sites (M10.39) Active confirmed Encounters Encounter Location Date Provider Diagnosis [facility] [address] [place] [address] 04/12/2024 Diaz Celis Idiopathic orofacial dystonia G24.4 [facility] [address] [place] [address] 07/05/2024 Komal Gates Idiopathic orofacial dystonia G24.4 [facility] [address] [place] [address] 04/11/2024 Diaz Celis [facility] [address] [place] [address] 04/11/2024 Diaz Celis Assessments Encounter Date Diagnosis (ICD Code) Assessment Notes Treatment Notes Treatment Clinical Notes Section Notes 04/12/2024 Idiopathic orofacial dystonia (ICD-10 - G24.4) 07/05/2024 Idiopathic orofacial dystonia (ICD-10 - G24.4) Plan Of Treatment No Information Insurance Providers Payer Name Payer Address Payer Phone Subscriber Number Group Number Insured Name Patient Relationship to Insured Coverage Start Date Coverage End Date [id number] [address] [place] [address] [id number] Rasheed Payton Self - patient is the insured Medical (General) History Medical History History ICD Code Gout due to renal impairment, multiple s ites M10.39 Essential (primary) hypertension I10 Hyperlipidemia
--- OUTSIDE RECORDS SUMMARY | 2025-02-12 17:00 | XMS_ITS | Continuity of Care Document ---
Author Organization [facility] Address [address] [place] [address] Phone Care Team Providers Care House Manager Name Role Phone Tim Guidry MD Unavailable Unavailable Allergies, Adverse Reactions, Alerts Substance Reaction Status Criticality No Known Allergies Active No Inform ation Medications Medication Instructions Dosage Effective Dates (start - stop) Status Comments indomethacin 50 mg capsule take 1 capsule (50MG) by oral route 3 times every day with food 50 MG - Active allopurinol 100 mg tablet take 1 tablet (100MG) by oral route every day 100 MG - Active prednisone 20 mg tablet take 3 Tablet (60MG) by oral route every day 60 MG - Active Procedures Procedure Date OFFICE/OUTPATIENT VISIT, EST PREV VISIT, EST, AGE 18-39 Advance Directives Directive Yes / No Effective Date File Name No Information Encounters Encounter Description Practice Location Reason(s) For Visit Diagnoses Date Provider Providers Copied on Encounter [facility], [address] [place], [place], [id number], tel:[phone] [facility] No Information 4 Chao Dumont. [address], [id number] , [place]. tel:[phone] Referring Provider: Tim Guidry, [address] [facility], [place], [place], [id number]. tel:[phone] OFFICE/OUTPAT IENT VISIT, EST [facility], [address] [place], [place], [id number], tel:[phone] [facility] Medicine gout (chief complaint) HLP (chief complaint) Dietary surveillance and counselingGout, unspecifiedOther and unspecified hyperlipidemia 3 Chao Dumont. [address], [place], [place], [id number] , [place]. tel:[phone] Referring Provider: Shaggy Mena [address], [place], [place], [id number]. tel:[phone] PREV VISIT, EST, AGE 18-39 [facility], [address], [place], [place], [id number], [place] tel:[phone] [facility] Physical (chief complaint) Routine Medical ExamDietary surveillance and counselingRoutine Medical Exam 3 Chao Dumont. [address], [place], [place], [id number] , [place]. tel:[phone] Referring Provider: [facility] [place], [place], [id number]. tel:[phone] Family History Family Member Type Diagnosis Age At Onset Mother Problem (finding) Alive and well Father Problem (finding) Coronary artery disease Sister Problem (finding) Alive and well Payers Payer name Insurance type Covered democrat ID Authoriza tion(s) No Information Social History Type Description Quantity Date Captured Comments Sex Male Smoking Status No Information Chief Complaint And Reason For Visit No Information Plan Of Treatment Date Type Action Status Goal Tobacco cessation counseling completed History Of Present Illness Encounter Date Complaint History Of Prese nt Illness No Information Instructions Date Instruction Additional Infor priti Dietary counseling Related to Di etary surveillance counseling Decrease caloric intake Related to Dietary surveillance counseling Dietary counseling Related to Di etary surveillance counseling Decrease caloric intake Related to Dietary surveillance counseling Assessments Type Assessment Date No Information
--- OUTSIDE RECORDS SUMMARY | 2025-02-12 17:00 | XMS_ITS | Clinical Summary ---
Author Organization [facility] Address [address] [place] [address] [address] Team [address] Care Court Orderly Name Role Phone Paco Felix MD Primary Care Provider Allergies No known active allergies Medications rosuvastatin (CRESTOR) 20 mg tablet Take 1 tablet (20 mg total) by mouth daily Active allopurinoL (ZYLOPRIM) 300 mg tablet Take 1 tablet (300 mg total) by mouth daily Active lisinopriL (PRINIVIL,ZESTRI L) 10 mg tablet Take 1 tablet (10 mg total) by mouth daily 30 tablet 11 05/15/2024 5 Active amLODIPine (NORVASC) 5 mg tablet Take 1 tablet (5 mg total) by mouth daily 90 tablet 3 09/07/2024 6 Active Active Problems Problem Noted Date Diagnosed Date Hypertension 05/17/2024 Hyperlipidemia 05/17/2024 Obstructive sleep apnea 12/19/2023 Assessment & Plan (08/14/2024 9:42 AM COMPUTER TRAINER): The patient continue to wear his CPAP at auto titrating range of 5-20 cm water pressure while sleeping. His DME is [facility] home care. Assessment & Plan (12/19/2023 9:24 AM CDT): The patient continue to wear CPAP at auto titrating range of 5-20 cm water pressure while sleeping. His DME is [facility] home care. Abnormal EKG 07/19/2023 Resolved Problems Problem Noted Date Diagnosed Date Resolved Date Snoring 07/19/2023 12/19/2023 Assessment & Plan (09/15/2023 1:41 PM COMPUTER TRAINER): The patient presents with snoring and excessive daytime hypersomnia. I have recommended proceeding with a nocturnal polysomnogram with a split night protocol if necessary and no MSLT. He will follow up here in 3 months. Encounters Date Type Department Care Team Description 11/13/2024 8:30 AM CDT Office Visit [facility] Cardiology [address] [place] [address] Medical Office Building [address] [place] [address] Gael Mullen MD Hypertension (Primary Dx); Hyperlipidemia; Abnormal EKG from Last 3 Months Social History Tobacco Use Types Packs/Day Years Used Date Smoking Tobacco: Former Cigarettes Smokeless Tobacco: Never Tobacco Cessation:Counseling Given: Not Answered Sex and Gender Information Value Date Recorded Sex Assigned at Not on file Legal Sex Male 10:47 AM CDT Gender Identity Male 07/18/2023 7:46 AM COMPUTER TRAINER Sexual Orientation Straight 07/18/2023 7: 46 AM COMPUTER TRAINER Obstetrics History Last Filed Vital Signs Vital Sign Reading Time Taken Comments Blood Pressure 138/89 11/13/2024 8:29 AM CDT Pulse 87 11/13/2024 8:29 AM CDT Temperature 36.3 C (97.3 F) 08/14/2024 8:35 AM COMPUTER TRAINER Respiratory Rate 16 08/14/2024 8:35 AM COMPUTER TRAINER Oxygen Saturation 98% 11/13/2024 8:29 AM CDT Inhaled Oxygen Concentration - - Weight 91.8 kg (202 lb 6.4 oz) 11/13/2024 8:29 A M CDT Height 177.8 cm (5' 10) 11/13/2024 8:29 AM CDT Body Mass Index 29.04 11/13/2024 8:29 AM CDT Plan of Treatment Health Maintenance Due Date Last Done Comments Colon Cancer Screening-Colonoscopy 1976 Depression Screening 1976 Hepatitis C Screening 1976 Hepatitis B Screening 1994 Regular Well Visit/Exam 18-64 1994 Covid-19 Vaccine ( season) 2024 06/06/2023, 07/06/2022, 06/24/2021, Additional history exists Influenza Vaccine (Season Ended) 2025 06/06/2023, 07/06/2022, 06/11/2021, Additional history exists DTaP/Tdap/Td Vaccine (2 - Td or Tdap) 04/05/2027 04/05/2017 Pneumococcal vaccine <65 Aged Out 06/06/2023 No longer eligible based on patient's age to complete this topic Insurance [facility] [employer] [facility] [employer] Care Teams Court Orderly Relationship Specialty Start Date End Date Paco Felix MD PCP - General Family Medicine 07/25/23
--- OUTSIDE RECORDS SUMMARY | 2025-02-12 17:00 | XMS_ITS | Referral Summary ---
Author Organization [facility] Address [address] [place] [address] Care Team Providers Care Meat Processor Name Role Phone Paco Felix MD Primary Care Provider Encounters Date Type Department Care Team Description 11/13/2024 8:30 AM CDT Office Visit [facility] Cardiology [address] [place] [address] Medical Office [address] [place] [address] Gael Mullen MD Hypertension (Primary Dx); Hyperlipidemia; Abnormal EKG from Last 3 Months Allergies No known active allergies Medications rosuvastatin [...] 12/19/2023 Assessment & Plan (08/14/2024 9:42 AM CAN RUNNER): The patient continue to wear his CPAP at auto titrating range of 5-20 cm water pressure while sleeping. His DME is [facility] home care. Assessment & Plan (12/19/2023 9:24 AM CDT): The patient continue to wear CPAP at auto titrating range of 5-20 cm water pressure while sleeping. His DME is [facility] home care. Abnormal EKG 07/19/2023 Resolved Problems Problem Noted Date Diagnosed Date Resolved Date Snoring 07/19/2023 12/19/2023 Assessment & Plan (09/15/2023 1:41 PM CAN RUNNER): The patient presents with snoring and excessive daytime hypersomnia. I have recommended proceeding with a nocturnal polysomnogram with a split night protocol if necessary and no MSLT. He will follow up here in 3 months. Social History Tobacco Use Types Packs/Day Years Used Date Smoking Tobacco: Former Cigarettes Smokeless Tobacco: Never Tobacco Cessation:Counseling Given: Not Answered Sex and Gender Information Value Date Recorded Sex Assigned at Not on file Legal Sex Male 10:47 AM CDT Gender Identity Male 07/18/2023 7:46 AM CAN RUNNER Sexual Orientation Straight 07/18/2023 7: 46 AM CAN RUNNER Last Filed Vital Signs Vital Sign Reading Time Taken Comments Blood Pressure 138/89 11/13/2024 8:29 AM CDT Pulse 87 11/13/2024 8:29 AM CDT Temperature 36.3 C (97.3 F) 08/14/2024 8:35 AM CAN RUNNER Respiratory Rate 16 08/14/2024 8:35 AM CAN RUNNER Oxygen Saturation 98% 11/13/2024 8:29 AM CDT Inhaled Oxygen Concentration - - Weight 91.8 kg (202 lb 6.4 oz) 11/13/2024 8:29 A M CDT Height 177.8 cm (5' 10) 11/13/2024 8:29 AM CDT Body Mass Index 29.04 11/13/2024 8:29 AM CDT Plan of Treatment Not on file Insurance [facility] Care Teams Meat Processor Relationship Specialty Start Date End Date Paco Felix MD PCP - General Family Medicine 07/25/23
--- OUTSIDE RECORDS SUMMARY | 2025-02-12 17:06 | XMS_ITS | Clinical Summary ---
Author Organization [facility] Address [address] [place] [address] Care Team Providers Care Junior Programmer Analyst Name Role Phone Ron Castellanos MD Primary Care Provider [phone] Allergies No known active allergies Medications allopurinol (ZYLOPRIM) 300 MG tabletIndications: Gout, arthritis Take 1 tablet (300 mg total) by mouth daily. 90 tablet 1 01/24/20 25 Active amLODIPine (NORVASC) 10 MG tabletIndications: Primary hypertension Take 1 tablet (10 mg total) by mouth daily. 90 tablet 1 01/24/20 25 Active lisinopril (PRINIVIL) 10 MG tabletIndications: Primary hypertension Take 1 tablet (10 mg total) by mouth daily. 90 tablet 1 01/24/20 25 Active rosuvastatin (CRESTOR) 20 MG tabletIndications: Mixed hyperlipidemia Take 1 tablet (20 mg total) by mouth nightly at bedtime. 90 tablet 1 01/24/20 25 Active lisinopril (PRINIVIL) 10 MG tabletIndications: Primary hypertension Take 1 tablet (10 mg total) by mouth daily. 90 tablet 1 05/18/20 24 025 Discontin ued(Reord er) amLODIPine (NORVASC) 10 MG tabletIndications: Primary hypertension Take 1 tablet (10 mg total) by mouth daily. 90 tablet 1 05/18/20 24 025 Discontin ued(Reord er) nirmatrelvir & ritonavir 300/100 (PAXLOVID, 300/100,) 20 x 150 MG & 10 x 100MG tablet packIndications:UR TI (acute upper respiratory infection) Take TWO nirmatrelvir 150 mg tablet(s) along with ONE ritonavir 100 mg tablet, with all three tablets taken together, twice daily for 5 days. May take with or without food. Swallow tablets whole. Do not chew, break or crush.. 30 tablet 10/10/19 25 025 Discontin ued(Thera py completed ) rosuvastatin (CRESTOR) 20 MG tabletIndications: Mixed hyperlipidemia TAKE 1 TABLET(20 MG) BY MOUTH EVERY NIGHT AT BEDTIME 90 tablet 1 12/20/19 25 025 Discontin ued(Reord er) allopurinol (ZYLOPRIM) 300 MG tabletIndications: Gout, arthritis TAKE 1 TABLET(300 MG) BY MOUTH DAILY 90 tablet 01/09/20 25 025 Discontin ued(Reord er) Active Problems Problem Noted Date Diagnosed Date Positive colorectal cancer screening using Colog uard test 06/26/2024 Overweight (BMI 25.0-29.9) 05/18/2024 Gout, arthritis 05/18/2024 Mixed hyperlipidemia 05/18/2024 Primary hypertension 05/18/2024 Encounters Date Type Department Care Team Description 01/24/2025 - 01/24/2025 11:59 PM CDT Hospital Encounter [facility] [address] [address] Discharge Disposition: Home or Self Care (Routine Discharge) 01/24/2025 [facility] [place] [address] [address] [facility] [address] [place] [address] Ron Castellanos MD CBC W/DIFF AUTOMATED, URIC ACID BLOOD, VITAMIN D 25 OH, Additional followed-up results: 4 01/24/2025 [facility] Only [facility] [place] [address] [place], [place] [id number] Ron Castellanos MD 01/24/2025 MyChart Message Enc [facility] [place] [address] [place] [address] Ron Castellanos MD Blood 01/23/2025 3:40 PM CDT [facility] [place] [address] [address] [place] [address] Ron Castellanos MD Follow Up (History of LBBB); Hypertension; Gout; Hyperlipidemia 01/23/2025 Telephone [facility] [address] [place] [address] Ron Castellanos MD Follow Up 01/23/2025 Travel from Last 3 Months Family History Medical History Relation Comments Heart Disease Father Hypertension Mother Relation Status Comments Father Mother Social History Tobacco Use Types Packs/Day Years Used Date Smoking Tobacco: Former Cigarettes 0.5 15.5 2 010 - 1995 Smokeless Tobacco: Never Tobacco Cessation:Counseling Given: Yes Comments:Counseled by Dr. Castellanos. AUDIT-C Answer Date Recorded Q1: How often do you have a drink containing alc ohol? 2-4 times a month 10/10/2024 Q2: How many drinks containi ng alcohol do you have on a typical day when you are drinking? 1 or 2 10/10/2024 Q3: How often do you have si x or more drinks on one occasion? Never 10/10/2024 PHQ-2 Answer Date Recorded Patient Health Questionnaire-2 Score 0 10/10/2024 Sex and Gender Information Value Date Recorded Sex Assigned at Male 10/10/2024 1:36 PM CATIA DESIGNER Legal Sex Male 8:29 AM CDT Gender Identity Male 10/10/2024 1:36 PM CATIA DESIGNER Sexual Orientation Straight 10/10/2024 1: 36 PM CATIA DESIGNER Last Filed Vital Signs Vital Sign Reading Time Taken Comments Blood Pressure 125/89 01/23/2025 6:07 PM CDT Pulse 84 10/10/2024 1:32 PM CATIA DESIGNER Temperature 36.9 C (98.4 F) 10/10/2024 1:32 PM CATIA DESIGNER Respiratory Rate 18 10/10/2024 1:32 PM CATIA DESIGNER Oxygen Saturation 97% 10/10/2024 1:32 PM CATIA DESIGNER Inhaled Oxygen Concentration - - Weight 92.5 kg (204 lb) 01/23/2025 3:40 PM CDT Height 177.8 cm (5' 10) 10/10/2024 1:32 PM CATIA DESIGNER Body Mass Index 29.27 10/10/2024 1:32 PM CATIA DESIGNER Plan of Treatment Upcoming Encounters Date Type Department Care Team (Late st Contact Info) Description 07/24/2025 7:00 AM CATIA DESIGNER Office Visit [facility] Medical Group Multispecialty Care - [place] [address] [address] [place] [address] Ron Castellanos MD [address] [facility] [address] [place] [address] Health Maintenance Due Date Last Done Comments Hepatitis B Vaccines (1 of 3 - 19+ 3-dose series) 1995 COVID-19 Vaccine ( season) 2024 06/06/2023, 07/06/2022, 06/24/2021, Additional history exists Annual Physical 05/18/2025 05/18/2024 DTaP, Tdap and Td Vaccines (2 - Td or Tdap) 04/05/2027 04/05/2017 Colorectal Cancer Screening Colonoscopy (10 Years) 09/14/2034 09/14/2024 Pneumococcal Vaccine: Pediatrics (0 to 5 Years) and At-Risk Patients (6 to 49 Years) Aged Out 06/06/2023 No longer eligible based on patient's age to complete this topic Hepatitis C Completed 05/29/2024 Colorectal Cancer Screening FIT-DNA (3 Years) Discontinued 06/19/2024, 06/19/2024 PHQ-2 (Physician [place]) Completed 10/10/2024 Meningococcal B Vaccine Aged Out No l onger eligible based on patient's age to complete this topic Meningococcal Vaccine Aged Out No linda ana maria eligible based on patient's age to complete this topic RSV Immunizations Under 20 Months Aged Out No longer eligible based on patient's age to complete this topic Procedures Procedure Name Priority Date/Time Associated Diagnosis Comments URIC ACID BLOOD Routine 01/24/2025 6:53 AM CDT Drug therapy COMPREHENSIVE METABOLIC PANEL Routine 01/24/2025 6:53 AM CDT Drug therapy Chronic fatigue TSH W/REFLEX Routine 01/24/2025 6:53 AM CDT Drug therapy Chronic fatigue CBC W/DIFF AUTOMATED Routine 01/24/2025 6:53 AM CDT Drug therapy Chronic fatigue VITAMIN B-12 Routine 01/24/2025 6:53 AM CDT Drug therapy Chronic fatigue VITAMIN D, 25 OH Routine 01/24/2025 6:53 AM CDT Drug therapy Chronic fatigue TESTOSTERONE, TOTAL Routine 01/24/2025 6 :53 AM CDT Drug therapy Chronic fatigue COLOGUARD (EXACT SCIENCE) Routine 06/19/2024 8:30 AM CATIA DESIGNER Screen for colon cancer HEPATITIS C ANTIBODY Routine 05/29/2024 7:38 AM CDT Annual physical exam Establishing care with new doctor, encounter for General medical exam Encounter for hepatitis C screening test for low risk patient from Last 3 Months or Most Recently Relevant to Health Maintenance Results * TSH W/REFLEX (01/24/2025 6:53 AM CDT) TSH 2.242 0.358 - 3.740 uIU/ML 01/24/2025 4:40 PM CDT [facility] 01/24/2025 6:53 AM CDT Ron Castellanos MD LABORATORY Final Result [facility] [address] [place] [address], [place] [phone] * (ABNORMAL) VITAMIN B-12 (01/24/2025 6:53 AM CDT) VITAMIN B12 S/P/B 4,527(H) 193 - 986 PG/ML 01/24/2025 4:40 PM CDT [facility] 01/24/2025 6:53 AM CDT Ron Castellanos MD LABORATORY Final Result -[facility] [address] [place] [address], * (ABNORMAL) COMPREHENSIVE METABOLIC PANEL (01/24/2025 6:53 AM CDT) SODIUM S/P/B 140 136 - 145 MMOL/L 01/24/2025 4:40 PM CDT -[facility] POTASSIUM S/P/B 4.1 3.5 - 5.1 MMOL/L 01/24/2025 4:40 PM CDT [facility] CHLORIDE S/P/B 103 98 - 107 MMOL/L 01/24/2025 4:40 PM CDT -[facility] CO2 29.2 21 - 32 MMOL/L 01/24/2025 4:40 PM CDT -[facility] GLUCOSE 101(H) 70 - 99 MG/DL 01/24/2025 4:40 PM CDT -[facility] BUN 18 7 - 18 MG/DL 01/24/2025 4:40 PM CDT -[facility] CREATININE S/P/B 1.01 0.70 - 1.30 MG/DL 01/24/2025 4:40 PM CDT -[facility] CALCIUM S/P/B 9.4 8.4 - 10.5 MG/DL 01/24/2025 4:40 PM CDT [facility] BILIRUBIN TOTAL S/P/B 0.7 0.2 - 1.0 MG/DL 01/24/2025 4:40 PM CDT [facility] ALKALINE PHOSPHATASE S/P/B 54 45 - 115 U/L 01/24/2025 4:40 PM CDT -[facility] AST 20 15 - 37 U/L 01/24/2025 4:40 PM CDT [facility] ALT 40 16 - 63 U/L 01/24/2025 4:40 PM CDT [facility] TOTAL PROTEIN S/P/B 7.0 6.4 - 8.2 G/DL 01/24/2025 4:40 PM CDT [facility] ALBUMIN S/P/B 4.4 3.4 - 5.0 G/DL 01/24/2025 4:40 PM CDT [facility] ANION GAP 7.8 5 - 15 MMOL/L 01/24/2025 4:40 PM CDT [facility] Comment:REFERENCE RANGE NOT ESTABLISHED OSMOLALITY (CALC) 292 MOSM/KG 025 4:40 PM CDT [facility] Comment:REFERENCE RANGE NOT ESTABLISHED GFR ESTIMATE >90 >90 ML/MIN/1. 73 M2 01/24/2025 4:40 PM T [facility] GFR NOTES GFR REFERENCE S: 01/24/2025 4:40 PM CDT [facility] Comment: THE ESTIMATED GFR IS CALCULATED USING THE 2020 CKD-EPI EQUATION. THE FOLLOWING CATEGORIES FOR GRADING RENAL FUNCTION ARE RECOMMENDED BY THE INTERNATIONAL SOCIETY OF NEPHROLOGY (KDIGO 2012 CLINICAL PRACTICE GUIDELINE). G1,NORMAL OR HIGH: >89 ml/min/1.73 m2 G2,MILDLY DECREASED: 60-89 ml/min/1.73 m2 G3A,MILDLY TO MODERATELY DECREASED: 45-59 ml/min/1.73 m2 G3B,MODERATELY TO SEVERELY DECREASED: 30-44 ml/min/1.73 m2 G4,SEVERELY DECREASED: 15-29 ml/min/1.73 m2 G5,KIDNEY FAILURE: <15 ml/min/1.73 m2 01/24/2025 6:53 AM CDT us Ron Castellanos MD LABORATORY Final Result [facility] [address] [place] [address], * CBC W/DIFF AUTOMATED (01/24/2025 6:53 AM CDT) [facility] WBC 5.89 4.00 - 10.80 x10'3/uL 01/24/2025 2:56 PM CDT [facility] RBC 4.88 4.50 - 6.10 x10'6/uL 01/24/2025 2:56 PM CDT [facility] HGB 14.9 13.0 - 18.0 G/DL 01/24/2025 2:56 PM CDT [facility] HCT 44.6 37.0 - 52.0 % 01/24/2025 2:56 PM CDT [facility] MCV 91.4 78.0 - 100.0 FL 01/24/2025 2:56 PM CDT [facility] MCH 30.5 27.0 - 31.0 PG 01/24/2025 2:56 PM CDT [facility] MCHC 33.4 33.0 - 36.0 G/DL 01/24/2025 2:56 PM CDT [facility] RDW 12.6 11.5 - 14.5 % 01/24/2025 2:56 PM CDT [facility] PLT 186 150 - 350 x10'3/uL 01/24/2025 2:56 PM CDT [facility] MPV 10.2 7.4 - 10.4 FL 01/24/2025 2:56 PM CDT [facility] DIFFERENTIAL TYPE AUTOMATED DIFFERENTIAL 01/24/2025 2:57 PM CDT [facility] NEUTROPHILS % 53.3 % 01/24/2025 2:57 PM CDT [facility] LYMPHOCYTES % 36.2 % 01/24/2025 2:57 PM CDT [facility] MONOCYTES % 8.3 % 01/24/2025 2:57 PM CDT [facility] EOSINOPHILS % 1.5 % 01/24/2025 2:57 PM CDT [facility] BASOPHILS % 0.5 % 01/24/2025 2:57 PM CDT [facility] IMMATURE GRANS % 0.2 % 01/24/2025 2:57 PM CDT [facility] ABS. NEUTROPHILS 3.14 1.60 - 8.30 x10'3/uL 01/24/2025 2:57 PM CDT [facility] ABS. LYMPHOCYTES 2.13 0.80 - 4.70 x10'3/uL 01/24/2025 2:57 PM CDT [facility] ABS. MONOCYTES 0.49 0.00 - 1.50 x10'3/uL 01/24/2025 2:57 PM CDT [facility] ABS. EOSINOPHILS 0.09 0.00 - 0.40 x10'3/uL 01/24/2025 2:57 PM CDT [facility] ABS. BASOPHILS 0.03 0.00 - 0.20 x10'3/uL 01/24/2025 2:57 PM CDT [facility] ABS. IMMATURE GRANULOCYTES 0.01 0.00 - 0.03 x10'3/uL 01/24/2025 2:57 PM CDT [facility] 01/24/2025 6:53 AM CDT Ron Castellanos MD LABORATORY Final Result [facility] [address] [place] [address], * TESTOSTERONE, TOTAL (01/24/2025 6:53 AM CDT) Pathologist [facility] TESTOSTERONE 484.8 197.4 - 669.6 NG/DL 01/25/2025 10:32 AM CDT [facility] Comment: ASSAY PERFORMED BY CHEMILUMINESCENCE METHODOLOGY USING [employer] SingleP[employer] Communications[employer]UR XPT REAGENT. PATIENT RESULTS DETERMINED BY ASSAYS USING DIFFERENT MANUFACTURERS FOR METHODS MAY NOT BE COMPARABLE. 01/24/2025 6:53 AM CDT Ron Castellanos MD LABORATORY Final Result [facility] [address] [place] [address], * VITAMIN D 25 OH (01/24/2025 6:53 AM CDT) VITAMIN D 25 HYDROXY TOTAL S/P/B 43.9 30 - 100 NG/ML 01/24/2025 4:40 PM CDT [facility] Comment: DEFICIENT <20 INSUFFICIENT 20-30 SUFFICIENT 30-100 01/24/2025 6:53 AM CDT Ron Castellanos MD LABORATORY Final Result Performing Organization Address [facility] Co de Phone Number [facility] [address] [place] [address], * URIC ACID BLOOD (01/24/2025 6:53 AM CDT) [facility] URIC ACID 4.3 3.5 - 7.2 MG/DL 01/24/2025 3:44 PM CDT [facility] 01/24/2025 6:53 AM CDT Ron Castellanos MD LABORATORY Final Result Performing Organization Address [facility] Co de Phone Number [facility] [address] [place] [address], * (ABNORMAL) COLOGUARD (EXACT SCIENCE) (06/19/2024 8:30 AM CATIA DESIGNER) Pathologist [facility] COLOGUARD RESULT Positive( A) Negative [facility] (CLIA #:[id number]) Comment: POSITIVE TEST RESULT. A positive Cologuard result should be followed with a colonoscopy or visual examination of the colon. The normal value (reference range) for this assay is negative. TEST DESCRIPTION: Composite algorithmic analysis of stool DNA-biomarkers with hemoglobin immunoassay. Quantitative values of individual biomarkers are not reportable and are not associated with individual biomarker result reference ranges. Cologuard is intended for colorectal cancer screening of adults of either sex, 45 years or older, who are at average-risk for colorectal cancer (CRC). Cologuard has been approved for use by the U.S. FDA. The performance of Cologuard was established in a cross sectional study of average-risk adults aged 50-84. Cologuard performance in patients ages 45 to 49 years was estimated by sub-group analysis of near-age groups. Colonoscopies performed for a positive result may find as the most clinically significant lesion: colorectal cancer [4.0%], advanced adenoma (including sessile serrated polyps greater than or equal to 1cm diameter) [20%] or non- advanced adenoma [31%]; or no colorectal neoplasia [45%]. These estimates are derived from a prospective cross-sectional screening study of 10,000 individuals at average risk for colorectal cancer who were screened with both Cologuard and colonoscopy. (Douglas Luong al, N Engl J Med 2014;370(14):3162-9115.) Cologuard may produce a false negative or false positive result (no colorectal cancer or precancerous polyp present at colonoscopy follow up). A negative Cologuard test result does not guarantee the absence of CRC or advanced adenoma (pre-cancer). The current Cologuard screening interval is every 3 years. ([place] [employer] Society and U.S. Multi-Society Task Force). Cologuard performance data in a 10,000 patient pivotal study using colonoscopy as the reference method can be accessed at the following location: www.[employer]/results. Additional description of the Cologuard test process, warnings and precautions can be found at www.[employer].com. STOOL STOOL SPECIMEN / Unknown 06/19/2024 8:30 AM CATIA DESIGNER 06/20/2024 9:39 AM CATIA DESIGNER us Ron Castellanos MD BODY FLUIDS AND STOOLS ORDERABLE S Final Result [facility]) [address] [place] [address], [facility] (CLIA #:[id number]) [address] [place] [address] * HEPATITIS C ANTIBODY (05/29/2024 7:38 AM CDT) HEPATITIS C AB NON-REACTI VE NON-REACT URMILA 05/29/2024 6:54 PM CDT [facility] Comment: ANTIBODIES TO HCV NOT DETECTED. DOES NOT EXCLUDE THE POSSIBILITY OF EXPOSURE TO HCV. 05/29/2024 7:38 AM CDT Ron Castellanos MD LABORATORY Final Result Performing Organization Address [facility] Co de Phone Number [facility] [address] [place] [address], [phone] from Last 3 Months or Most Recently Relevant to Health Maintenance Insurance [employer] [facility] Care Teams Junior Programmer Analyst Relationship Specialty Start Date End Date Ron Castellanos MD [address] [facility] [address] [place] [id number] PCP - General INTERNAL MEDICINE 03/27/24
--- OUTSIDE RECORDS SUMMARY | 2025-02-12 17:06 | XMS_ITS | Encounter Summary ---
Author Organization [facility] Address [address] [place] [address] Care Team Providers Care Hoop Driving Machine Operator Helper Name Role Phone Ron Castellanos MD Primary Care Provider [phone] Encounter Details Date Type Department Care Team ([facility] Contact Info) Description 01/24/2025 DiscoveRXhart Message Enc [facility] Medical Group Multispecialty Care - [place] [address] [place] [address] [address] [place] [address] [place] [address] [place] [address] [address] [place], [place] [id number] Blood Social History Tobacco Use Types Packs/Day Years Used Date Smoking Tobacco: Former Cigarettes 0.5 15.5 2 010 - 1995 Smokeless Tobacco: Never Comments:Counseled by Dr. Diana woods. AUDIT-C Answer Date Recorded Q1: How often [...] Sex Assigned at Male 10/10/2024 1:36 PM RECORD PRODUCER Legal Sex Male 8:29 AM CDT Gender Identity Male 10/10/2024 1:36 PM RECORD PRODUCER Sexual Orientation Straight 10/10/2024 1: 36 PM RECORD PRODUCER documented as of this encounter Plan of Treatment Upcoming Encounters Date Type Department Care Team (Melody Contact Info) Description 07/24/2025 7:00 AM RECORD PRODUCER Office Visit [facility] Medical Group Multispecialty Care - [place] [address] [address] [place] [address] [place] [address] [place] [address] documented as of this encounter Visit Diagnoses Not on filedocumented in this encounter Additional Health Concerns Assessment Noted Time PHQ-9 Depression Total Score: 0 10/10/19 25 2:10 PM RECORD PRODUCER documented as of this encounter Care Teams Hoop Driving Machine Operator Helper Relationship Specialty Start Date End Date Ron Castellanos MD [address] [place] [id number] PCP - General INTERNAL MEDICINE 03/27/24 documented as of this encounter
--- OUTSIDE RECORDS SUMMARY | 2025-02-12 17:06 | XMS_ITS | Continuity of Care Document ---
Author Organization [facility] Address [address] [place] [address] Phone Care Team Providers Care Janitor Custodian Name Role Phone Tim Guidry MD Unavailable Unavailable Allergies, Adverse Reactions, Alerts Substance Reaction Status Criticality No Known Allergies Active No Inform ation Medications Medication Instructions Dosage Effective Dates (start - stop) Status Comments indomethacin 50 mg capsule take 1 capsule (50MG) by oral route 3 times every day with food 50 MG - Active prednisone 20 mg tablet take 3 Tablet (60MG) by oral route every day 60 MG - Active allopurinol 100 mg tablet take 1 tablet (100MG) by oral route every day 100 MG - Active Procedures Procedure Date OFFICE/OUTPATIENT VISIT, EST PREV VISIT, EST, AGE 18-39 Advance Directives Directive Yes / No Effective Date File Name No Information Encounters Encounter Description Practice Location Reason(s) For Visit Diagnoses Date Provider Providers Copied on Encounter [facility], [address] [place], [place], [id number], tel:[phone] [facility] No Information [address] Chao [address]. [address], [id number] , [place]. tel:[phone] Referring Provider: Tim Guidry, [address] [facility], [place], [place], [id number]. tel:[phone] OFFICE/OUTPAT IENT VISIT, EST [facility], [address] [facility] [place] [place], [place], [id number], tel:[phone] [facility] gout (chief complaint) HLP (chief complaint) Dietary surveillance and counselingGout, unspecifiedOther and unspecified hyperlipidemia 3 Chao Dumont. [address], [place], [place], [id number] , [place]. tel:[phone] Referring Provider: Shaggy Mena [address], [place], [place], [id number]. tel:[phone] PREV VISIT, EST, AGE 18-39 [facility], [address] [place], [place], [id number], [place] tel:[phone] [facility] Physical (chief complaint) Routine Medical ExamDietary surveillance and counselingRoutine Medical Exam 3 Chao Dumont. [address], [place], [place], [id number] , [place]. tel:[phone] Referring Provider: [facility] [place], [id number]. tel:[phone] Family History Family Member Type Diagnosis Age At Onset Mother Problem (finding) Alive and well Father Problem (finding) Coronary artery disease Sister Problem (finding) Alive and well Payers Payer name Insurance type Covered republican ID Authoriza tion(s) No Information Social History [...]
--- OUTSIDE RECORDS SUMMARY | 2025-02-12 17:06 | XMS_ITS | Encounter Summary ---
Author Organization [facility] Address [address] [address] Care Team Providers Care Lockstitch Back Maker Name Role Phone Ron Castellanos MD Primary Care Provider [phone] Encounter Details Date Type Department Care Team (Late st Contact Info) Description 10/10/2024 Razor Insightst Message Enc [facility] Multispecialty Care - [place] [address] [place] [address] [address] [place] [address] [place] [address] [place] [address] [address] [place], [place] [id number] Illness Social History Tobacco Use Types Packs/Day Years [...] Sex Assigned at Male 10/10/2024 1:36 PM NIGHT WAREHOUSE SELECTOR Legal Sex Male 8:29 AM CDT Gender Identity Male 10/10/2024 1:36 PM NIGHT WAREHOUSE SELECTOR Sexual Orientation Straight 10/10/2024 1: 36 PM NIGHT WAREHOUSE SELECTOR documented as of this encounter Functional Status * Over the past 2 weeks, how often have you been bothered by any of the following problems? Question Answer Date of Assessment Author Status Little interest or pleasure in doing things Not at all 10/10/2024 2:10 PM Evelin Brito MA Act luther Feeling down, depressed, or hopeless Not at all 10/10/2024 2:10 PM Evelin Brito MA Active Patient Health Questionnaire-2 Score 0 10/10/2024 2:10 PM Evelin Brito MA Active * Question Answer Date of Assessment Author Status Trouble falling or staying asleep, or sleeping too much Not at all 10/10/2024 2:10 PM Evelin Brito MA Active Feeling tired or having little energy Not at all 10/10/2024 2:10 PM Evelin Brito MA Active Poor appetite or overeating Not at all 10/10/2024 2:10 PM Evelin Brito MA Active Feeling bad about yourself - or that you are a failure or have let yourself or your family down Not at all 10/10/2024 2:10 PM Evelin Brito MA Active Trouble concentrating on things, such as reading the newspaper or watching television Not at all 10/10/2024 2:10 PM Evelin Brito MA Active Moving or speaking so slowly that other people could have noticed? Or the opposite - being so fidgety or restless that you have been moving around a lot more than usual. Not at all 10/10/2024 2:10 PM Evelin Brito MA Active Thoughts that you would be better off or hurting yourself in some way Not at all 10/10/2024 2:10 PM Evelin Brito MA Active Patient Health Questionnaire-9 Score 0 10/10/2024 2:10 PM Evelin Brito MA Active * If you checked off any problems on this questionnaire so far, Question Answer Date of Assessment Author Status How difficult have these problems made it for you to do your work, take care of things at home, or get along with other people? Not difficult at all 10/10/2024 2:10 PM Evelin Brito MA Active * Over the last 2 weeks, how often have you been bothered by any of the following problems? Question Answer Date of Assessment Author Status Feeling nervous, anxious, or on edge 0 10/10/2024 2:10 PM NIGHT WAREHOUSE SELECTOR Evelin Storey MA Act luther Not being able to stop or control worrying 0 10/10/2024 2:10 PM NIGHT WAREHOUSE SELECTOR Evelin Storey MA Ac tive Worrying too much about different things 0 10/10/2024 2:10 PM NIGHT WAREHOUSE SELECTOR Evelin Storey MA Ac tive Trouble relaxing 0 10/10/2024 2:10 PM NIGHT WAREHOUSE SELECTOR Evelin Murguia MA Active Being so restless that it is hard to sit still 0 10/10/2024 2:10 PM NIGHT WAREHOUSE SELECTOR Evelin Storey M A Active Becoming easily annoyed or irritable 0 10/10/2024 2:10 PM NIGHT WAREHOUSE SELECTOR Evelin Storey MA Act luther Feeling afraid as if something awful might happen 0 10/10/2024 2:10 PM NIGHT WAREHOUSE SELECTOR Evelin Storey MA Act luther STEPHANI-7 Total Score 0 10/10/2024 2:10 PM NIGHT WAREHOUSE SELECTOR Evelin Zamudio ms, MA Active documented as of this encounter Plan of Treatment Upcoming Encounters Date Type Department Care Team (Late st Contact Info) Description 07/24/2025 7:00 AM NIGHT WAREHOUSE SELECTOR Office Visit [facility] Multispecialty Care [place] [address] [address] [place] [address] Ron Castellanos MD [address] [place] [address] documented as of this encounter Visit Diagnoses Not on filedocumented in this encounter Additional Health Concerns Infection Onset Date Last Indicated Resolved Time Respiratory Rule Out 10/10/2024 10/10/2024 025 4:04 PM NIGHT WAREHOUSE SELECTOR COVID-19 Confirmed 10/10/2024 10/10/2024 12:32 AM CDT Assessment Noted Time PHQ-9 Depression Total Score: 0 10/10/19 2:10 PM NIGHT WAREHOUSE SELECTOR documented as of this encounter Care Teams Lockstitch Back Maker Relationship Specialty Start Date End Date Ron Castellanos MD [address] [place] [address] [address] [place] [address] PCP - General INTERNAL MEDICINE 03/27/24 documented as of this encounter
--- OUTSIDE RECORDS SUMMARY | 2025-02-12 17:06 | XMS_ITS | Encounter Summary ---
Author Organization [facility] Address [address] [place] [address] Care Team Providers Care Quartz Mounter Name Role Phone Ron Castellanos MD Primary Care Provider [phone] Encounter Details Date Type Department Care Team (Late st Contact Info) Description 05/31/2024 MyChart Message Enc [facility] Medical Group Multispecialty Care - [place] [address] [place] [address] [address] [place] [address] [place] [address] [place] [address] 157 [place] [address] Blood Pressure Social History Tobacco Use Types Packs/Day Years Used Date Smoking Tobacco: Former Cigarettes 0.5 15.5 2 010 - 1995 Smokeless Tobacco: Never AUDIT-C Answer Date Recorded Q1: How often do you have a drink containing alc ohol? Monthly or less 05/18/2024 Q2: How many drinks containi ng alcohol do you have on a typical day when you are drinking? 1 or 2 05/18/2024 Q3: How often do you have si x or more drinks on one occasion? Never 05/18/2024 PHQ-2 Answer Date Recorded Patient Health Questionnaire-2 Score 0 05/18/2024 Sex and Gender Information Value Date Recorded Sex Assigned at Male 10/10/2024 1:36 PM BRIAR WOOD SORTER Legal Sex Male 8:29 AM CDT Gender Identity Male 10/10/2024 1:36 PM BRIAR WOOD SORTER Sexual Orientation Straight 10/10/2024 1: 36 PM BRIAR WOOD SORTER documented as of this encounter Plan of Treatment Upcoming Encounters Date Type Department Care Team (Late st Contact Info) Description 07/24/2025 7:00 AM BRIAR WOOD SORTER Office Visit [facility] Medical Group Multispecialty Care - [place] [address] [address] [place] [address] Ron Castellanos MD [address] [address] documented as of this encounter Visit Diagnoses Not on filedocumented in this encounter Additional Health Concerns Infection Onset Date Last Indicated Resolved Time Respiratory Rule Out 10/10/2024 10/10/2024 025 4:04 PM BRIAR WOOD SORTER COVID-19 Confirmed 10/10/2024 10/10/2024 5 12:32 AM CDT Assessment Noted Time PHQ-9 Depression Total Score: 0 05/18/20 24 4:27 PM CDT documented as of this encounter Care Teams Quartz Mounter Relationship Specialty Start Date End Date Ron Castellanos MD [address] [place] [address] PCP - General INTERNAL MEDICINE 03/27/24 documented as of this encounter
--- OUTSIDE RECORDS SUMMARY | 2025-02-12 17:06 | XMS_ITS | Encounter Summary ---
Author Organization [facility] Address [address] [place] [address] Care Team Providers Care Mainstreaming Facilitator Name Role Phone Ron Castellanos MD Primary Care Provider [phone] Encounter Details Date Type Department Care Team (Latest Contact Info) Description 01/24/2025 Results Follow-Up [facility] Multispecialty Care - [place] [address] [address] [place], [place] [id number] Ron Castellanos MD [address] [place] [address] [address] [place] [address] CBC W/DIFF AUTOMATED, URIC ACID BLOOD, VITAMIN D 25 OH, Additional followed-up results: 4 Social History Tobacco Use Types Packs/Day Years [...] Sex Assigned at Male 10/10/2024 1:36 PM CIVIL DIVISION DEPUTY SHERIFF Legal Sex Male 8:29 AM CDT Gender Identity Male 10/10/2024 1:36 PM CIVIL DIVISION DEPUTY SHERIFF Sexual Orientation Straight 10/10/2024 1: 36 PM CIVIL DIVISION DEPUTY SHERIFF documented as of this encounter Plan of Treatment Upcoming Encounters Date Type Department Care Team (Late st Contact Info) Description 07/24/2025 7:00 AM CIVIL DIVISION DEPUTY SHERIFF Office Visit [facility] Medical Group Multispecialty Care - [place] [address] [address] [place] [address] Ron Castellanos MD [address] [place] [address] documented as of this encounter Visit Diagnoses Not on filedocumented in this encounter Additional Health Concerns Assessment Noted Time PHQ-9 Depression Total Score: 0 10/10/19 25 2:10 PM CIVIL DIVISION DEPUTY SHERIFF documented as of this encounter Care Teams Mainstreaming Facilitator Relationship Specialty Start Date End Date Ron Castellanos MD [address] [place] [address] PCP - General INTERNAL MEDICINE 03/27/24 documented as of this encounter
[2025-02-12 17:08] VITALS: BP 127/90; PULSE 68; RESP 17; TEMP 36.1; O2SAT 99
--- NOTE | 2025-02-12 17:22 | ED_ITS ---
HPI - General Adult General Chief complaint: Ear Stated complaint: Ear pain in both ears History of Present Illness HPI narrative: Rasheed Payton is a 49 y/o male who presents today with complaints of bilateral ear pain that started about 3 days ago. He states he was doing a lot of swimming and now he feels that the inside of his right ear is getting swollen. Dolores any known fever/chills Denies any other contributing symptoms no sore throat/ cough / runny nose Related Data Home Medications ?Medication ?Instructions ?Recorded ?Confirmed ?Last Taken ?Type amlodipine 5 mg tablet 5 mg PO DAILY 09/27/23 02/12/25 Unknown History amlodipine 10 mg tablet mg 02/12/25 Unknown History lisinopril 10 mg tablet mg 02/12/25 Unknown History Allergies Allergy/AdvReac Type Severity Reaction Status Date / Time No Known Allergies Allergy Verified 02/12/25 16:59 Review of Systems Review of Systems: All systems reviewed & are unremarkable except as noted in HPI and below PMFSH Past Medical History Medical History BMI 26.0-26.9,adult COVID Gout Surgical History Surgical History History of eye surgery H/O wrist surgery Family History Family History Father Atherosclerotic heart disease of nonautologous biological bypass graft Celiac disease Mother Hypertension Sibling No problems noted. 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 HEAD: Normocephalic, atraumatic. EYES: PERRLA and EOMI. ENT: Nares clear, no rhinorrhea or epistaxis. Mucous membranes moist. Oropharynx without tonsillar hypertrophy exudate or other lesions. Left TM pearly putnam with the ear canal + erythema and inflammation The R TM pearly putnam and appears intact as well R Ear canal appears swollen + erythema and inflamma tion NECK: Supple. CHEST: Clear to auscultation. No respiratory distress. No wheezes rales or rhonchi HEART: Regular rate and rhythm. EXTREMITIES: Normal range of motion. NEURO: No focal deficits. Alert and oriented x3. PSYCH: Normal mood and affect. Course Course Level of Care: Express Care Visit Vital Signs Vital signs: Vital Signs Temperature 36.1 C L 02/12/25 17:08 Pulse Rate 68 02/12/25 17:08 Respiratory Rate 02/12/25 17:08 Blood Pressure 127/90 02/12/25 17:08 Pulse Oximetry 99 02/12/25 17:08 Oxygen Delivery Room Air 02/12/25 17:08 Temperature 36.1 C L 02/12/25 17:08 Pulse Rate 68 02/12/25 17:08 Respiratory Rate 02/12/25 17:08 Blood Pressure 127/90 02/12/25 17:08 Pulse Oximetry 99 02/12/25 17:08 Oxygen Delivery Room Air 02/12/25 17:08 Medical Decision Making [facility] Narrative Medical decision making narrative: 49 y/o presenting with acute bilateral ear pain for 3 days, exam consistent with otitis externa bilaterally.. No mastoid tenderness or headaches or neck stiffness, doubt mastoiditis or meningitis, patient is very well-appearing. Started on cipro dex ear drops and discharged in stable condition to follow up with PCP. Pulse oximetry interpretation: not hypoxic DISPOSITION: Discharged to home in stable condition. IMPRESSION: 1. Acute otitis externa bilateral Medical Records Medical records reviewed: Yes I reviewed the external patient's medical records. Vital Signs Vital Signs: Vital Signs Temperature 36.1 C L 02/12/25 17:08 Pulse Rate 68 02/12/25 17:08 Respiratory Rate 17 02/12/25 17:08 Blood Pressure 127/90 02/12/25 17:08 Pulse Oximetry 99 02/12/25 17:08 Oxygen Delivery Room Air 02/12/25 17:08 Temperature 36.1 C L 02/12/25 17:08 Pulse Rate 68 02/12/25 17:08 Respiratory Rate 17 02/12/25 17:08 Blood Pressure 127/90 02/12/25 17:08 Pulse Oximetry 99 02/12/25 17:08 Oxygen Delivery Room Air 02/12/25 17:08 VItals reviewed by me Discharge Plan Discharge Clinical Impression: Otitis externa Qualifiers: Otitis externa type: unspecified type Chronicity: acute Laterality: bilateral Qualified Code(s): H60.503 - Unspecified acute noninfective otitis externa, bilateral Patient Disposition: Home Condition: Stable Instructions: Antibiotic Form Additional Instructions: Start the ear drops today, apply 4 drops to each ear twice daily for 7 days You may also take Tylenol to help with the pain as needed You should start to feel some improvement in about 48 hours Follow up with your PCP in 1 week to ensure this is improved Patient Language: Romanian Prescriptions: New ciprofloxacin-dexamethasone 0.3-0.1 % drops,suspension 4 drp EACH EAR Q12H 7 Days Qty: 7.5 0RF No Action amlodipine 5 mg tablet 5 mg PO DAILY amlodipine 10 mg tablet lisinopril 10 mg tablet rosuvastatin [Crestor] 20 mg tablet 20 mg PO DAILY Qty: 90 3RF allopurinol 300 mg tablet 300 mg PO DAILY Qty: 90 1RF Follow-up/Referrals: Jasmin,MD Ron [Primary Care Provider] - 1 Week Time of Disposition: 17:19
== END 2025-02-12 17:22 | disposition home or self-care (01) ==
PROVIDERS: Emergency Provider Nurse Practitioner Family; PCP Internal Medicine
DX: H60.503 Unspecified acute noninfective otitis externa, bilateral (principal); Z87.891 Personal history of nicotine dependence; M10.9 Gout, unspecified; Z86.16 Personal history of COVID-19
CPT/HCPCS: 99213; G0463

== ENCOUNTER 2025-03-11 10:54 | Emergency (ER) | payer BC, SELFPAY ==
--- NOTE | ~2025-03-11 | XR_ITS ---
XR toe 1st LT min 2V 03/11/2025 11:29 INDICATION: Left first toe pain PROCEDURE: 4 views left first toe COMPARISON: No prior studies for comparison. FINDINGS: There is a possible nondisplaced fracture dorsal base left first proximal phalanx. The soft tissues appear within normal limits. No foreign bodies are identified. IMPRESSION: 1: Possible nondisplaced fracture dorsal base left first proximal phalanx. Correlate for point tender ness. Reviewed, dictated and finalized at location B. IMPRESSION: 1: Possible nondisplaced fracture dorsal base left first proximal phalanx. Jeevan elate for point tenderness.
--- NOTE | 2025-03-11 11:08 | ED.LOWEXIN ---
HPI - Extremity Injury (Lower) General Chief Complaint: Extremity Injury, Lower Stated Complaint: foot injury Time Seen by Provider: 03/11/25 11:33 Source: patient and RN notes reviewed Mode of arrival: ambulatory Limitations: no limitations History of Present Illness HPI Narrative: 49-year-old male presents with concern for injury to the 1st digit of the left foot. Reports 1 week ago he stubbed the toe on a threshold. He reports he had bruising to the 1st digit and the dorsal foot. He reports pain is tolerable but it feels stiff. MD complaint: foot injury Related Data Home Medications ?Medication ?Instructions ?Recorded ?Confirmed ?Last Taken ?Type amlodipine 10 mg tablet mg 02/12/25 Unknown History lisinopril 10 mg tablet mg 02/12/25 Unknown History Allergies Allergy/AdvReac Type Severity Reaction Status Date / Time No Known Allergies Allergy Verified 03/11/25 11:11 Review of Systems Review of Systems: CONSTITUTIONAL: Denies malaise, chills, sweats, or fever. SKIN: Denies rash or itching, open skin, laceration, abrasion, redness, warmth, swelling. MUSCULOSKELETAL: Reports stiffness, swelling, bruising to the 1st digit of the left foot NEUROLOGIC: Denies numbness, weakness All systems reviewed & are unremarkable except as noted in HPI and below PMFSH Past Medical History Medical History BMI 26.0-26.9,adult COVID Gout Surgical History Surgical History History of eye surgery H/O wrist surgery Family History Family History Father Atherosclerotic heart disease of nonautologous biological bypass graft Celiac disease Mother Hypertension Sibling No problems noted. 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 There is no relevant family history pertinent to the presenting complaint Exam Narrative: GENERAL: Well-appearing, well-nourished, and in no acute distress. HEAD: Normocephalic, atraumatic. EYES: PERRLA, conjunctivae clear NECK: Supple. CHEST: Speaks in full sentences. No respiratory distress. HEART: Regular rate and rhythm. Normal and equal peripheral pulses. EXTREMITIES: 1st digit of the left foot has grossly normal strength and sensation, grossly normal range of motion. Mild edema with distal ecchymosis. Normal sensation with sensitivity to light touch and pain. Tenderness to the base of the 1st digit. No open wounds, no skin tenting, no devitalized tissue or atrophy, no trophic changes, no obvious deformity, alignment normal, nearby joints and structures intact. Distal pulses palpable and equal bilaterally, skin warm, dry, pink. Capillary refill less than 3 seconds. SKIN: Warm, dry, no rash. NEURO: Alert and oriented x3. PSYCH: Normal mood and affect Course Course Emergency Course: Patient is aware of diagnosis, understands and agrees to treatment plan. Anticipatory guidance given. Patient agrees to follow-up as directed and is aware of reasons to seek care at the emergency department. Portions of this record may have been created with voice recognition software Level of Care: Express Care Visit Vital Signs Vital signs: Reviewed. MDM - Extremity Injury (Lower) MDM Narrative Medical decision making narrative: The patient was evaluated by myself in the express care. History is obtained from patient who is an independent historian and physical exam was performed.? Available medical records were reviewed at this time. ? Exam findings show no acute concerns or changes; patient is non-toxic appearing and is in no distress. Patient is appropriate for outpatient treatment and follow-up. ? I have evaluated and discussed social determinants of health with the patient that could potentially impact subsequent diagnosis and treatment plans. ? Patients injury and pain is consistent with musculoskeletal etiology. No signs of neurological or vascular compromise on exam. Compartments and tissues are soft without signs of compartment syndrome. Pain is felt appropriate for further evaluation on an outpatient basis. Imaging Data My impression: Images reviewed, interpreted by radiologist, agree, see report. Radiologist's impression: XR toe 1st LT min 2V 03/11/2025 11:29 INDICATION: Left first toe pain PROCEDURE: 4 views left first toe COMPARISON: No prior studies for comparison. FINDINGS: There is a possible nondisplaced fracture dorsal base left first proximal phalanx. The soft tissues appear within normal limits. No foreign bodies are identified. IMPRESSION: 1: Possible nondisplaced fracture dorsal base left first proximal phalanx. Correlate for point tenderness. Critical Care Time Critical Care Time Critical Care Time: No Discharge Plan Discharge Clinical Impression: Fracture of phalanx of foot Qualifiers: Encounter type: initial encounter Toe: great toe Fracture type: closed Phalanx: proximal Fracture alignment: nondisplaced Patient Disposition: Home Condition: Stable Instructions: Toe Fracture (ED) Additional Instructions: Please rest, ice and elevate the affected extremity. Please take Motrin 600mg every 8 hours, as needed, for pain (take with food). Follow up with Orthopedic Surgery in 1-2 days for further evaluation - please call for an appointment. Westley tape the toe to the toe next to it, where firm soled shoes. Please go to ER immediately for increased pain, tingling/numbness, swelling, redness, and fever Patient Language: Slovak Prescriptions: No Action amlodipine 10 mg tablet lisinopril 10 mg tablet rosuvastatin [Crestor] 20 mg tablet 20 mg PO DAILY Qty: 90 3RF allopurinol 300 mg tablet 300 mg PO DAILY Qty: 90 1RF Follow-up/Referrals: Michael Ulloa MD [Physician[facility] - [facility] [Primary Care Provider] - Time of Disposition: 11:56
[2025-03-11 11:12] VITALS: BP 115/84; PULSE 68; RESP 18; TEMP 36.3; O2SAT 99
--- OUTSIDE RECORDS SUMMARY | 2025-03-11 11:27 | XMS_ITS | Patient Health Record ---
Author Organization [facility] [employer] [place] ([address]) Address [address] [place] [address] Care Team Providers Care Shirt Maker Name Role Phone Isidro CARDENAS, Paco Primary Care Provider Dr. 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 [address] [place] [address] 04/12/2024 Diaz Celis Idiopathic orofacial dystonia G24.4 [facility] [address] [place] [address] 07/05/2024 Komal Gates Idiopathic orofacial dystonia G24.4 [facility] [address] [place] [address] 04/11/2024 Diaz Celis [facility] [address] [place] [address] 04/11/2024 Diaz Celis Assessments Encounter Date Diagnosis (ICD Code) Assessment Notes Treatment Notes Treatment Clinical Notes Section Notes 04/12/2024 Idiopathic orofacial dystonia (ICD-10 - G24.4) 07/05/2024 Idiopathic orofacial dystonia (ICD-10 - G24.4) Plan Of Treatment No Information Insurance Providers Payer Name Payer Address Payer Phone Subscriber Number Group Number Insured Name Patient Relationship to Insured Coverage Start Date Coverage End Date [employer] [address] [place] [address] [id number] Rasheed Payton Self - patient is the insured Medical (General) History Medical History History ICD Code Gout due to renal impairment, multiple s ites M10.39 Essential (primary) hypertension I10 Hyperlipidemia
--- OUTSIDE RECORDS SUMMARY | 2025-03-11 11:27 | XMS_ITS | Clinical Summary ---
Author Organization [facility] Address [address] [place] [address] Care Team Providers Care Rn Imcu Name Role Phone Paco Felix MD Primary Care Provider [phone] Allergies No known active allergies Medications rosuvastatin [...] 12/19/2023 Assessment & Plan (08/14/2024 9:42 AM COMPOSITE ASSEMBLER): The patient continue to wear his CPAP at auto titrating range of 5-20 cm water pressure while sleeping. His DME is [facility] home care. Assessment & Plan (12/19/2023 9:24 AM CDT): The patient continue to wear CPAP at auto titrating range of 5-20 cm water pressure while sleeping. His DME is [facility] home care. Abnormal EKG 07/19/2023 Resolved Problems Problem Noted Date Diagnosed Date Resolved Date Snoring 07/19/2023 12/19/2023 Assessment & Plan (09/15/2023 1:41 PM COMPOSITE ASSEMBLER): The patient presents with snoring and excessive [...] CDT Gender Identity Male 07/18/2023 7:46 AM COMPOSITE ASSEMBLER Sexual Orientation Straight 07/18/2023 7: 46 AM COMPOSITE ASSEMBLER Obstetrics History Last Filed Vital Signs Vital Sign Reading Time Taken Comments Blood Pressure 138/89 11/13/2024 8:29 AM CDT Pulse 87 11/13/2024 8:29 AM CDT Temperature 36.3 C (97.3 F) 08/14/2024 8:35 AM COMPOSITE ASSEMBLER Respiratory Rate 16 08/14/2024 8:35 AM COMPOSITE ASSEMBLER Oxygen Saturation 98% 11/13/2024 8:29 AM CDT [...] 07/06/2022, 06/24/2021, Additional history exists Influenza Vaccine (#1) 2025 , 07/06/2022, 06/11/2021, Additional history exists DTaP/Tdap/Td Vaccine (2 - Td or Tdap) 04/05/2027 04/05/2017 Pneumococcal vaccine <65 Aged Out 06/06/2023 No longer eligible based on patient's age to complete this topic Insurance [facility] Care Teams Rn Imcu Relationship Specialty Start Date End Date Paco Felix MD PCP - General Family Medicine 07/25/23
--- OUTSIDE RECORDS SUMMARY | 2025-03-11 11:27 | XMS_ITS | Continuity of Care Document ---
Author Organization [facility] Address [address] [place] [address] Phone Care Team Providers Care Hat Band Attacher Name Role Phone Tim Guidry MD Unavailable [...] Diagnoses Date Provider Providers Copied on Encounter [facility], [address] [place], [place], [id number], tel:[phone] [facility] No Information 4 Chao Dumont. [address] [place], [id number] , [place]. tel:[phone] Referring Provider: Tim Guidry, [address] [facility], [place], [place], [id number]. tel:[phone] OFFICE/OUTPAT IENT VISIT, EST [facility], [address] [employer], [place], [id number], tel:[phone] [facility] Medicine gout (chief complaint) HLP (chief complaint) Dietary surveillance and counselingGout, unspecifiedOther and unspecified hyperlipidemia 3 Chao Dumont. [address], [place], [place], [id number] , [place]. tel:[phone] Referring Provider: Shaggy Mena [address], [place], [place], [id number]. tel:[phone] PREV VISIT, EST, AGE 18-39 [facility], [address], [place], [place], [id number], [place] tel:[phone] [facility] Physical (chief complaint) Routine Medical ExamDietary surveillance and counselingRoutine Medical Exam 3 Chao Dumont. [address], [place], [place], [id number] , [place]. tel:[phone] Referring Provider: [facility] [place], [place], [id number]. tel:[phone] Family History Family Member Type Diagnosis Age At Onset Mother Problem (finding) Alive and well Father Problem (finding) Coronary artery disease Sister Problem (finding) Alive and well Payers Payer name Insurance type Covered alliance party ID Authoriza tion(s) No Information Social History [...]
--- OUTSIDE RECORDS SUMMARY | 2025-03-11 11:33 | XMS_ITS | Referral Summary ---
Author Organization [facility] Address [address] [place] [address] Care Team Providers Care Chorus Dancer Name Role Phone Paco Felix MD Primary Care Provider [phone] Allergies No known active allergies Medications rosuvastatin [...] 12/19/2023 Assessment & Plan (08/14/2024 9:42 AM CARTON MAKER): The patient continue to wear his CPAP at auto titrating range of 5-20 cm water pressure while sleeping. His DME is [facility] home care. Assessment & Plan (12/19/2023 9:24 AM CDT): The patient continue to wear CPAP at auto titrating range of 5-20 cm water pressure while sleeping. His DME is [facility] home care. Abnormal EKG 07/19/2023 Resolved Problems Problem Noted Date Diagnosed Date Resolved Date Snoring 07/19/2023 12/19/2023 Assessment & Plan (09/15/2023 1:41 PM CARTON MAKER): The patient presents with snoring and excessive [...] CDT Gender Identity Male 07/18/2023 7:46 AM CARTON MAKER Sexual Orientation Straight 07/18/2023 7: 46 AM CARTON MAKER Last Filed Vital Signs Vital Sign Reading Time Taken Comments Blood Pressure 138/89 11/13/2024 8:29 AM CDT Pulse 87 11/13/2024 8:29 AM CDT Temperature 36.3 C (97.3 F) 08/14/2024 8:35 AM CARTON MAKER Respiratory Rate 16 08/14/2024 8:35 AM CARTON MAKER Oxygen Saturation 98% 11/13/2024 8:29 AM CDT Inhaled Oxygen Concentration - - Weight 91.8 kg (202 lb 6.4 oz) 11/13/2024 8:29 A M CDT Height 177.8 cm (5' 10) 11/13/2024 8:29 AM CDT Body Mass Index 29.04 11/13/2024 8:29 AM CDT Plan of Treatment Not on file Insurance [facility] HEALTHSOLUTIONS [facility] Care Teams Chorus Dancer Relationship Specialty Start Date End Date Paco Felix MD PCP - General Family Medicine 07/25/23
== END 2025-03-11 12:01 | disposition home or self-care (01) ==
PROVIDERS: Emergency Provider Nurse Practitioner; PCP Internal Medicine
DX: S92.415A Nondisplaced fracture of proximal phalanx of left great toe, initial encounter for closed fracture (principal); W22.09XA Striking against other stationary object, initial encounter; M10.9 Gout, unspecified; U07.1 COVID-19; Z87.891 Personal history of nicotine dependence
CPT/HCPCS: 73660; 99214; G0463

== ENCOUNTER 2025-08-10 11:46 | Emergency (ER) | payer BC, SELFPAY ==
--- OUTSIDE RECORDS SUMMARY | 2025-08-10 11:48 | XMS_ITS | Encounter Summary ---
Author Organization [facility] Address [address] [place] [address] Care Team Providers Care Control Integration Engineer Name Role Phone Rno Castellanos MD Primary Care Provider [phone] Encounter Details Date Type Department Care Team (Late st Contact Info) Description 10/10/2024 MyChart Message Enc [facility] Medical Group Multispecialty Care - [place] [address] [place] [address] [address] [place] [address] [place] [address] [place] [address] [address] [place], [place] [id number] Illness Social History Tobacco Use Types Packs/Day Years Used Date Smoking Tobacco: Former Cigarettes 0.5 16 2 010 - 1995 Smokeless Tobacco: Never [...] Sex Assigned at Male 10/10/2024 1:36 PM CAREER TRANSITION SPECIALIST Legal Sex Male 8:29 AM CDT Gender Identity Male 10/10/2024 1:36 PM CAREER TRANSITION SPECIALIST Sexual Orientation Straight 10/10/2024 1: 36 PM CAREER TRANSITION SPECIALIST documented as of this encounter Plan of Treatment Upcoming Encounters Date Type Department Care Team (Late st Contact Info) Description 09/02/2025 8:00 AM CAREER TRANSITION SPECIALIST Laboratory Only [facility] Medical [facility] Multispecialty Care - [place] [address] [address] [place] [address] Ron Castellanos MD [facility] [address] 02/07/2026 7:00 AM CDT Office Visit [facility] Medical [facility] Multispecialty Care - [place] [address] [address] [place] [address] Ron Castellanos MD [address] [place] [address] documented as of this encounter Visit Diagnoses Not on filedocumented in this encounter Additional Health Concerns Infection Onset Date Last Indicated Resolved Time Respiratory Rule Out 10/10/2024 10/10/2024 025 4:04 PM CAREER TRANSITION SPECIALIST COVID-19 Confirmed 10/10/2024 10/10/2024 12:32 AM CDT Assessment Noted Time PHQ-9 Depression Total Score: 0 10/10/19 25 2:10 PM CAREER TRANSITION SPECIALIST documented as of this encounter Care Teams Control Integration Engineer Relationship Specialty Start Date End Date Ron Castellanos MD [address] [place] [address] PCP - General INTERNAL MEDICINE 03/27/24 documented as of this encounter
--- OUTSIDE RECORDS SUMMARY | 2025-08-10 11:48 | XMS_ITS | Clinical Summary ---
Author Organization [facility] Address [address] [place] [address] Care Team Providers Care Crm Marketing Analyst Name Role Phone Ron Castellanos MD Primary Care Provider [phone] Allergies No known active allergies Medications rosuvastatin (CRESTOR) 20 mg tablet Take 1 tablet (20 mg total) by mouth daily Active allopurinoL (ZYLOPRIM) 300 mg tablet Take 1 tablet (300 mg total) by mouth daily Active lisinopriL (PRINIVIL,ZESTRI L) 10 mg tablet Take 1 tablet (10 mg total) by mouth daily 30 tablet 11 05/15/2024 Active amLODIPine (NORVASC) 5 mg tablet Take 1 tablet (5 mg total) by mouth daily 90 tablet 3 09/07/2024 Active Active Problems Problem Noted Date Diagnosed Date 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 His DME is [facility] home care. Assessment & Plan (12/19/2023 9:24 AM CDT): The patient continue to wear CPAP at auto titrating range of 5-20 cm water pressure while sleeping. His DME is [facility] home care. Abnormal EKG 07/19/2023 Resolved Problems Problem Noted Date Diagnosed Date Resolved Date Snoring 07/19/2023 12/19/2023 Assessment & Plan (09/15/2023 1:41 PM SHUTDOWN PLANNER): The patient presents with snoring and excessive daytime hypersomnia. I have recommended proceeding with a nocturnal polysomnogram with a split night protocol if necessary and no MSLT. He will follow up here in 3 months. Encounters Date Type Department Care Team Description 08/01/2025 Telephone [facility] Medical Group Pulmonary [address] [address] Luis Contreras MD 07/19/2025 8:45 AM SHUTDOWN PLANNER Imaging Exam [facility] Medicine Ophthalmology [address] [place] [address] Alternating exotropia (Primary Dx) 07/19/2025 8:20 AM SHUTDOWN PLANNER Office Visit [facility] Ophthalmology [address] [place] [address] Jorge Curiel MD Alternating exotropia (Primary Dx); Hyperopia of both eyes; Diplopia; Vertical strabismus of right eye; Vertical strabismus of left eye; Pseudopapilledema of both optic discs; Visual discomfort of both eyes from Last 3 Months Social History Tobacco Use Types Packs/Day Years Used Date Smoking Tobacco: Former Cigarettes Smokeless Tobacco: Never Tobacco Cessation:Counseling Given: Not Answered Sex and Gender Information Value Date Recorded Sex Assigned at Not on file Legal Sex Male 10:47 AM CDT Gender Identity Male 07/18/2023 7:46 AM SHUTDOWN PLANNER Sexual Orientation Straight 07/18/2023 7: 46 AM SHUTDOWN PLANNER Last Filed Vital Signs Vital Sign Reading Time Taken Comments Blood Pressure 138/89 11/13/2024 8:29 AM CDT Pulse 87 11/13/2024 8:29 AM CDT Temperature 36.3 C (97.3 F) 08/14/2024 8:35 AM SHUTDOWN PLANNER Respiratory Rate 16 08/14/2024 8:35 AM SHUTDOWN PLANNER Oxygen Saturation 98% 11/13/2024 8:29 AM CDT Inhaled Oxygen Concentration - - Weight 91.6 kg (202 lb) 07/19/2025 8:56 AM SHUTDOWN PLANNER Height 177.8 cm (5' 10) 07/19/2025 8:56 AM SHUTDOWN PLANNER Body Mass Index 28.98 07/19/2025 8:56 AM SHUTDOWN PLANNER Plan of Treatment Health Maintenance Due Date Last Done Comments Colon Cancer Screening-Colonoscopy 1976 Depression Screening 1976 Hepatitis C Screening 1976 Hepatitis B Screening 1994 Regular Well Visit/Exam 18-64 1994 Covid-19 Vaccine ( season) 2025 06/06/2023, 07/06/2022, 06/24/2021, Additional history exists Influenza Vaccine (#1) 2025 , 07/06/2022, 06/11/2021, Additional history exists DTaP/Tdap/Td Vaccine (2 - Td or Tdap) 04/05/2027 04/05/2017 Pneumococcal vaccine <65 Aged Out 06/06/2023 No longer eligible based on patient's age to complete this topic Procedures Procedure Name Priority Date/Time Associated Diagnosis Comments FUNDUS PHOTOS/FAF - OU - BOTH EYES Routine 07/19/2025 9:52 AM SHUTDOWN PLANNER Alternating exotropia OCT, OPTIC NERVE - OU - BOTH EYES Routine 07/19/2025 9:52 AM SHUTDOWN PLANNER Alternating exotropia from Last 3 Months Results * Fundus Photos/FAF - OU - Both Eyes (07/19/2025 9:52 AM SHUTDOWN PLANNER) Anatomical Region Laterality Modality Head Fundus Photograp hy Narrative 07/23/2025 8:32 PM SHUTDOWN PLANNER Pseudo papilledema mild of hyperopia us Jorge Cureil MD OPHTH PHOTOGRAPHY Fin al Result * OCT, Optic Nerve - OU - Both Eyes (07/19/2025 9:52 AM SHUTDOWN PLANNER) Anatomical Region Laterality Modality Head Optical Coherenc e Tomography Narrative 07/23/2025 8:31 PM SHUTDOWN PLANNER Normal retinal nerve fiber layer us Jorge Curiel MD OPHTH TOMOGRAPHY Emili l Result from Last 3 Months Insurance [place] [facility] [employer]IONS [facility] Care Teams Crm Marketing Analyst Relationship Specialty Start Date End Date Ron Castellanos MD [address] [place] [address] PCP - General Internal Medicine 07/19/25
--- OUTSIDE RECORDS SUMMARY | 2025-08-10 11:48 | XMS_ITS | Encounter Summary ---
Author Organization [facility] Address [address] [place] [address] Care Team Providers Care Gis Programmer Name Role Phone Ron Castellanos MD Primary Care Provider [phone] Encounter Details Date Type Department Care Team (Late st Contact Info) Description 05/31/2024 MyChart Message Enc [facility] Medical Group Multispecialty Care [place] [address] [place] [address] [address] [place] [address] [place] [address] [place] [address] [address] [place] [address] Blood Pressure Social History Tobacco Use Types [...] Sex Assigned at Male 10/10/2024 1:36 PM STRATIGRAPHY TEACHER Legal Sex Male 8:29 AM CDT Gender Identity Male 10/10/2024 1:36 PM STRATIGRAPHY TEACHER Sexual Orientation Straight 10/10/2024 1: 36 PM STRATIGRAPHY TEACHER documented as of this encounter Plan of Treatment Upcoming Encounters Date Type Department Care Team (Late st Contact Info) Description 09/02/2025 8:00 AM STRATIGRAPHY TEACHER Laboratory Only [facility] Medical [facility] Multispecialty Care - [place] [address] [address] [place] [address] [place] [address] [place] [address] 02/07/2026 7:00 AM CDT Office Visit [facility] Medical [facility] Multispecialty [facility] - [place] [address] [address] [place] [address] Ron Castellanos MD [address] [place] [address] documented as of this encounter Visit Diagnoses Not on filedocumented in this encounter Additional Health Concerns Infection Onset Date Last Indicated Resolved Time Respiratory Rule Out 10/10/2024 10/10/2024 025 4:04 PM STRATIGRAPHY TEACHER COVID-19 Confirmed 10/10/2024 10/10/2024 12:32 AM CDT Assessment Noted Time PHQ-9 Depression Total Score: 0 05/18/20 24 4:27 PM CDT documented as of this encounter Care Teams Gis Programmer Relationship Specialty Start Date End Date Ron Castellanos MD [address] [place] [address] PCP - General INTERNAL MEDICINE 03/27/24 documented as of this encounter
--- OUTSIDE RECORDS SUMMARY | 2025-08-10 11:48 | XMS_ITS | Encounter Summary ---
Author Organization [facility] Address [address] [place] [address] Care Team Providers Care Timekeeper Name Role Phone Ron Castellanos MD Primary Care Provider [phone] Encounter Details Date Type Department Care Team (Late st Contact Info) Description 01/24/2025 MyChart Message Enc [facility] Medical Group Multispecialty Care - [place] [address] [place] [address] [address] [place], [place] [phone] [place] [address] [place] [address] [address] [place], [place] [id number] Blood Social History Tobacco Use Types Packs/Day [...] Sex Assigned at Male 10/10/2024 1:36 PM WING COMMANDER Legal Sex Male 8:29 AM CDT Gender Identity Male 10/10/2024 1:36 PM WING COMMANDER Sexual Orientation Straight 10/10/2024 1: 36 PM WING COMMANDER documented as of this encounter Plan of Treatment Upcoming Encounters Date Type Department Care Team (Late st Contact Info) Description 09/02/2025 8:00 AM WING COMMANDER Laboratory Only [facility] Medical [facility] Multispecialty Care - [place] [address] [address] [place] [address] Ron Castellanos MD [address] [place] [address] 02/07/2026 7:00 AM CDT Office Visit [facility] Medical [facility] Multispecialty [facility] - [address] [address] Ron Castellanos MD [address] [place] [address] documented as of this encounter Visit Diagnoses Not on filedocumented in this encounter Additional Health Concerns Assessment Noted Time PHQ-9 Depression Total Score: 0 10/10/19 25 2:10 PM WING COMMANDER documented as of this encounter Care Teams Timekeeper Relationship Specialty Start Date End Date Ron Castellanos MD [address] [place] [address] PCP - General INTERNAL MEDICINE 03/27/24 documented as of this encounter
--- OUTSIDE RECORDS SUMMARY | 2025-08-10 11:48 | XMS_ITS | Encounter Summary ---
Author Organization [facility] Address [address] [place] [address] Care Team Providers Care Drying Machine Operator Name Role Phone Ron Castellanos MD Primary Care Provider [phone] Encounter Details Date Type Department Care Team (Late st Contact Info) Description 08/10/2025 Optensityt Message Enc [facility] Medical Group Multispecialty Care - [place] [address] [place] [address] [address] [place] [address] [place] [address] [place] [address] [address] [place], [place] [id number] Illness Social History Tobacco Use Types Packs/Day Years Used Date Smoking Tobacco: Former Cigarettes 0.5 16 2 010 - 1995 Smokeless Tobacco: Never Comments:Counseled by Dr. Daina woods. Alcohol Use Standard Drinks/Week Comments Not Currently 0 (1 standard drink = 0.6 oz pur e alcohol) Occasional AUDIT-C Answer Date Recorded Q1: How often [...] Date Recorded Patient Health Questionnaire-2 Score 0 07/25/2025 Sex and Gender Information Value Date Recorded Sex Assigned at Male 10/10/2024 1:36 PM VISUAL ARTS TEACHER Legal Sex Male 8:29 AM CDT Gender Identity Male 10/10/2024 1:36 PM VISUAL ARTS TEACHER Sexual Orientation Straight 10/10/2024 1: 36 PM VISUAL ARTS TEACHER documented as of this encounter Plan of Treatment Upcoming Encounters Date Type Department Care Team (Late st Contact Info) Description 09/02/2025 8:00 AM VISUAL ARTS TEACHER Laboratory Only [facility] Medical [facility] Multispecialty [facility] - [place] [address] [address] [place] [address] Ron Castellanos MD [address] [place] [address] 02/07/2026 7:00 AM CDT Office Visit [facility] [address] [address] Ron Castellanos MD [address] [place] [address] documented as of this encounter Visit Diagnoses Not on filedocumented in this encounter Additional Health Concerns Assessment Noted Time PHQ-9 Depression Total Score: 0 07/25/20 25 7:26 AM VISUAL ARTS TEACHER documented as of this encounter Care Teams Drying Machine Operator Relationship Specialty Start Date End Date Ron Castellanos MD [address] [place] [address] PCP - General INTERNAL MEDICINE 03/27/24 documented as of this encounter
--- OUTSIDE RECORDS SUMMARY | 2025-08-10 11:48 | XMS_ITS | Clinical Summary ---
Author Organization [facility] Address [facility] [place] [address] Care Team Providers Care Senior Javascript Engineer Name Role Phone Ron Castellanos MD Primary Care Provider [phone] Allergies No known active allergies Medications methylPREDNISolon e, LO, (MEDROL DOSEPAK) 4 MG tabletIndications :Acute midline low back pain without sciatica,Neck pain 6 TABLETS ON DAY ONE, 5 TABLETS DAY TWO, 4 TABLETS DAY THREE, 3 TABLETS DAY FOUR, 2 TABLETS DAY FIVE, AND 1 TABLET DAY SIX; no ibuprofen. Take with food. 1 each 07/25/20 25 Active allopurinol (ZYLOPRIM) 300 MG tabletIndications :Gout, arthritis Take 1 tablet (300 mg total) by mouth daily. 90 tablet 1 07/25/20 25 Active rosuvastatin (CRESTOR) 20 MG tabletIndications :Mixed hyperlipidemia Take 1 tablet (20 mg total) by mouth nightly at bedtime. 90 tablet 1 07/25/20 25 Active amLODIPine (NORVASC) 10 MG tabletIndications :Primary hypertension Take 1 tablet (10 mg total) by mouth daily. 90 tablet 1 07/25/20 25 Active lisinopril (PRINIVIL) 10 MG tabletIndications :Primary hypertension Take 1 tablet (10 mg total) by mouth daily. 90 tablet 1 07/25/20 25 Active cyclobenzaprine (FLEXERIL) 5 MG tabletIndications :Acute midline low back pain without sciatica,Neck pain Take 1 tablet (5 mg total) by mouth nightly at bedtime. 5 tablet 07/25/20 25 Active allopurinol (ZYLOPRIM) 300 MG tabletIndications :Gout, arthritis Take 1 tablet (300 mg total) by mouth daily. 90 tablet 1 01/24/20 25 025 Discontinued(Re order) amLODIPine (NORVASC) 10 MG tabletIndications :Primary hypertension Take 1 tablet (10 mg total) by mouth daily. 90 tablet 1 01/24/20 25 025 Discontinued(Re order) lisinopril (PRINIVIL) 10 MG tabletIndications :Primary hypertension Take 1 tablet (10 mg total) by mouth daily. 90 tablet 1 01/24/20 25 025 Discontinued(Re order) rosuvastatin (CRESTOR) 20 MG tabletIndications :Mixed hyperlipidemia TAKE 1 TABLET(20 MG) BY MOUTH EVERY NIGHT AT BEDTIME 90 tablet 06/17/20 25 025 Discontinued(Re order) cyclobenzaprine (FLEXERIL) 5 MG tabletIndications :Acute midline low back pain without sciatica,Neck pain Take 1 tablet (5 mg total) by mouth nightly at bedtime. 10 tablet 07/25/20 025 Discontinued Active Problems Problem Noted Date Diagnosed Date TERRELL on CPAP 07/25/2025 LBBB (left bundle branch block) 07/25/2025 Positive colorectal cancer screening using Colog uard test 06/26/2024 Overweight (BMI 25.0-29.9) 05/18/2024 Gout, arthritis 05/18/2024 Mixed hyperlipidemia 05/18/2024 Primary hypertension 05/18/2024 Encounters Date Type Department Care Team Description 08/10/2025 MyChart Message Enc [facility] [place] [address] [facility] [address] [place] [address] Ron Castellanos MD Illness 07/25/2025 7:00 AM POOL ATTENDANT Office [facility] [place] [address] [facility] [address] [place] [address] Ron Castellanos MD Annual; Neck And Back Pain; Hyperlipidemia; Hypertension; Follow Up (Chronic medical issues/) 07/25/2025 Results Follow-Up [facility] [place] [phone] [facility] [address] [place] [address] Ron Castellanos MD URIC ACID BLOOD, PROSTATE SPECIFIC ANTIGEN,SCREENING, LIPID PANEL, Additional followed-up results: 5 07/25/2025 Travel from Last 3 Months Immunizations Immunization Administration Dates Next Due Influenza Adult (Generic) 06/14/2025 Family History Medical History Relation Comments Heart Disease Father Hypertension Mother Relation Status Comments Father Mother Social History Tobacco Use Types Packs/Day Years Used Date Smoking Tobacco: Former Cigarettes 0.5 16 2 010 - 1995 Smokeless Tobacco: Never Tobacco Cessation:Counseling Given: Yes Comments:Counseled by Dr. Castellanos. Alcohol Use Standard Drinks/Week Comments Not Currently [...] Sex Assigned at Male 10/10/2024 1:36 PM POOL ATTENDANT Legal Sex Male 8:29 AM CDT Gender Identity Male 10/10/2024 1:36 PM POOL ATTENDANT Sexual Orientation Straight 10/10/2024 1: 36 PM POOL ATTENDANT Last Filed Vital Signs Vital Sign Reading Time Taken Comments Blood Pressure 129/83 07/25/2025 7:06 AM POOL ATTENDANT Pulse 66 07/25/2025 7:06 AM POOL ATTENDANT Temperature 36.7 C (98 F) 07/25/2025 7:06 AM POOL ATTENDANT Respiratory Rate 18 10/10/2024 1:32 PM POOL ATTENDANT Oxygen Saturation 98% 07/25/2025 7:06 AM POOL ATTENDANT Inhaled Oxygen Concentration - - Weight 97.3 kg (214 lb 6.4 oz) 07/25/2025 7:06 A M POOL ATTENDANT Height 177.8 cm (5' 10) 07/25/2025 7:06 AM POOL ATTENDANT Body Mass Index 30.76 07/25/2025 7:06 AM POOL ATTENDANT Plan of Treatment Upcoming Encounters Date Type Department Care Team (Late st Contact Info) Description 09/02/2025 8:00 AM POOL ATTENDANT Laboratory Only [facility] [place] [phone] [facility] [address] [place] [address] Ron Castellanos MD [address] [facility] [address] [place] [address] 02/07/2026 7:00 AM CDT Office [facility] [place] [phone] [facility] [address] [place] [address] Ron Castellanos MD [address] [facility] [address] [place] [address] Health Maintenance Due Date Last Done Comments Hepatitis B Vaccines (1 of 3 - 19+ 3-dose series) 1995 COVID-19 Vaccine ( season) 2025 06/06/2023, 07/06/2022, 06/24/2021, Additional history exists Annual Physical 07/25/2026 07/25/2025, 05/18/2024 DTaP, Tdap and Td Vaccines (2 - Td or Tdap) 04/05/2027 04/05/2017 Colorectal Cancer Screening Colonoscopy (10 Years) 09/14/2034 09/14/2024 Pneumococcal Vaccine: Pediatrics (0 to 5 Years) and At-Risk Patients (6 to 49 Years) Aged Out 06/06/2023 No longer eligible based on patient's age to complete this topic Hepatitis C Completed 05/29/2024 Colorectal Cancer Screening FIT-DNA (3 Years) Discontinued 06/19/2024, 06/19/2024 Influenza Adult Completed 06/14/2025, 05/16, 07/06/2022, Additional history exists PHQ-2 (Physician [place]) Completed 07/25/2025 Hepatitis A Vaccines Aged Out No long er eligible based on patient's age to complete this topic Meningococcal B Vaccine Aged Out No l onger eligible based on patient's age to complete this topic Meningococcal Vaccine Aged Out No linda ana maria eligible based on patient's age to complete this topic RSV Immunizations Under 20 Months Aged Out No longer eligible based on patient's age to complete this topic Procedures Procedure Name Priority Date/Time Associated Diagnosis Comments URINALYSIS Routine 07/25/2025 7:53 AM POOL ATTENDANT Annual physical exam General medical exam Drug therapy GENERAL HEALTH PANEL Routine 07/25/2025 7:45 AM POOL ATTENDANT Annual physical exam General medical exam Drug therapy COMPREHENSIVE METABOLIC PANEL Routine 07/25/2025 7:45 AM POOL ATTENDANT Annual physical exam General medical exam Drug therapy TSH W/REFLEX Routine 07/25/2025 7:45 AM POOL ATTENDANT Annual physical exam General medical exam Drug therapy HEMOGLOBIN, GLYCOSYLATED Routine 07/25/2025 7:45 AM POOL ATTENDANT Annual physical exam General medical exam Drug therapy LIPID PANEL Routine 07/25/2025 7:45 AM POOL ATTENDANT Annual physical exam General medical exam Drug therapy PROSTATE SPECIFIC ANTIGEN,SCREENING Routine 07/25/2025 7:45 AM POOL ATTENDANT Annual physical exam General medical exam Drug therapy URIC ACID BLOOD Routine 07/25/2025 7:45 AM POOL ATTENDANT Drug therapy COLLECTION VENOUS BLOOD VENIPUNCTURE Routine 07/25/2025 7:18 AM POOL ATTENDANT Annual physical exam General medical exam Drug therapy COLOGUARD (EXACT SCIENCE) Routine 06/19/2024 8:30 AM POOL ATTENDANT Screen for colon cancer HEPATITIS C ANTIBODY Routine 05/29/2024 7:38 AM CDT Annual physical exam Establishing care with new doctor, encounter for General medical exam Encounter for hepatitis C screening test for low risk patient from Last 3 Months or Most Recently Relevant to Health Maintenance Results * (ABNORMAL) URINALYSIS (07/25/2025 7:53 AM POOL ATTENDANT) COLOR (U) YELLOW 07/25/2025 3:48 PM POOL ATTENDANT [facility] TRAN[facility] CLEAR CLEAR 07/25/2025 3:48 PM POOL ATTENDANT [facility] SPECIFIC GRAVITY (U) 1.020 1.003 - 1.040 07/25/2025 3:48 PM POOL ATTENDANT [facility] U PH 6.0 5.0 - 9.0 07/25/2025 3:48 PM POOL ATTENDANT [facility] PROTEIN RANDOM (U) NEGATIVE NEGATIVE 07/25/2025 3:48 PM POOL ATTENDANT [facility] GLUCOSE (U) NEGATIVE NEGATIVE 07/25/2025 3:48 PM POOL ATTENDANT [facility] KETONES MG/DL (U) NEGATIVE NEGATIVE 07/25/2025 3:48 PM POOL ATTENDANT [facility] BILIRUBIN (U) NEGATIVE NEGATIVE 07/25/2025 3:48 PM POOL ATTENDANT [facility] BLOOD (U) NEGATIVE NEGATIVE 07/25/2025 3:48 PM POOL ATTENDANT [facility] UROBILINOGEN 0.2 0.0 - 2.0 EU/DL 07/25/2025 3:48 PM POOL ATTENDANT [facility] NITRITES NEGATIVE NEGATIVE 07/25/2025 3:48 PM POOL ATTENDANT [facility] LEUKOCYTES (U) NEGATIVE NEGATIVE 07/25/2025 3:48 PM POOL ATTENDANT [facility] RBC/HPF 0-3 0 - 3 /HPF 07/25/2025 3:48 PM POOL ATTENDANT [facility] WBC/HPF 0-3 0 - 3 /HPF 07/25/2025 3:48 PM POOL ATTENDANT [facility] EPI/HPF 0-3 /HPF 07/25/2025 3:48 PM POOL ATTENDANT [facility] BACTERIA (U) TRACE(A) NONE SEEN 07/25/2025 3:48 PM POOL ATTENDANT [facility] URINE URINE SPECIMEN OBTAINED BY CLEAN CATCH PROCEDURE / Unknown 07/25/2025 7:53 AM POOL ATTENDANT us Ron Castellanos MD URINE ORDERABLES Final Result [facility] [address] [place] [address], * URIC ACID BLOOD (07/25/2025 7:45 AM POOL ATTENDANT) Pathologist [facility] URIC ACID 7.0 3.5 - 7.2 MG/DL 07/25/2025 3:19 PM POOL ATTENDANT [facility] BLOOD VENOUS BLOOD SPECIMEN / Unknown 07/25/2025 7:45 AM POOL ATTENDANT us Ron Castellanos MD LABORATORY Final Result [address] [address], * PROSTATE SPECIFIC ANTIGEN,SCREENING (07/25/2025 7:45 AM POOL ATTENDANT) Pathologist [facility] PSA 2.34 <4.00 NG/ML 07/25/2025 3:15 PM POOL ATTENDANT [facility] Comment: ASSAY PERFORMED BY ENZYME IMMUNOASSAY METHODOLOGY USING SIEMENS DIMENSION REAGENT. PATIENT RESULTS DETERMINED BY ASSAYS FROM DIFFERENT MANUFACTURERS AND/OR BY DIFFERENT METHODS MAY NOT BE COMPARABLE. BLOOD VENOUS BLOOD SPECIMEN / Unknown 07/25/2025 7:45 AM POOL ATTENDANT us Ron Castellanos MD LABORATORY Final Result Performing Organization Address City/[facility]/ZIP Co de Phone Number [place] [address] [place] [address], [place] [phone] * (ABNORMAL) LIPID PANEL (07/25/2025 7:45 AM POOL ATTENDANT) Pathologist [facility] CHOLESTEROL 123 <200 MG/DL 07/25/2025 4:06 PM POOL ATTENDANT [facility] TRIGLYCERIDES 76 <150 MG/DL 07/25/2025 4:06 PM POOL ATTENDANT [facility] HDL 38(L) >40 MG/DL 07/25/2025 4:06 PM POOL ATTENDANT [facility] LDL-C 70 <100 MG/DL 07/25/2025 4:06 PM POOL ATTENDANT [facility] VLDL CALCULATION 15 5 - 28 MG/DL 07/25/2025 4:06 PM [facility] CHOL/HDL RATIO 3.2 0.0 - 4.0 07/25/2025 4:06 PM [facility] LDL/HDL 1.8 0.41 - 2.13 07/25/2025 4:06 PM POOL ATTENDANT [facility] NON HDL CHOLESTEROL 85 <140 MG/DL 07/25/2025 4:06 PM POOL ATTENDANT [facility] BLOOD VENOUS BLOOD SPECIMEN / Unknown 07/25/2025 7:45 AM POOL ATTENDANT us Ron Castellanos MD LABORATORY Final Result Performing Organization Address City/[facility]/ZIP Co de Phone Number [facility] [address] [place] [address], [place] [phone] * (ABNORMAL) HEMOGLOBIN, GLYCOSYLATED (07/25/2025 7:45 AM POOL ATTENDANT) [facility] HGB A1C 5.5 4.5 - 6.2 % 07/25/2025 4:21 PM POOL ATTENDANT [facility] ESTIMATED AVG GLUCOSE 111(H) 74 - 106 MG/DL 07/25/2025 4:21 PM POOL ATTENDANT [facility] BLOOD VENOUS BLOOD SPECIMEN / Unknown 07/25/2025 7:45 AM POOL ATTENDANT us Ron Castellanos MD LABORATORY Final Result [facility] [address] [place] [address], [place] [phone] * (ABNORMAL) COMPREHENSIVE METABOLIC PANEL (07/25/2025 7:45 AM POOL ATTENDANT) [facility] SODIUM S/P/B 144 136 - 145 MMOL/L 07/25/2025 4:06 PM [facility] POTASSIUM S/P/B 4.6 3.5 - 5.1 MMOL/L 07/25/2025 4:06 PM [facility] CHLORIDE S/P/B 107 98 - 107 MMOL/L 07/25/2025 4:06 PM [facility] CO2 30.8 21 - 32 MMOL/L 07/25/2025 4:06 PM [facility] GLUCOSE 110(H) 70 - 99 MG/DL 07/25/2025 4:06 PM [facility] BUN 20(H) 7 - 18 MG/DL 07/25/2025 4:06 PM [facility] CREATININE S/P/B 1.24 0.70 - 1.30 MG/DL 07/25/2025 4:06 PM [facility] CALCIUM S/P/B 8.8 8.4 - 10.5 MG/DL 07/25/2025 4:06 PM [facility] BILIRUBIN TOTAL S/P/B 0.5 0.2 - 1.0 MG/DL 07/25/2025 4:06 PM [facility] ALKALINE PHOSPHATASE S/P/B 52 45 - 115 U/L 07/25/2025 4:06 PM [facility] AST 86(H) 15 - 37 U/L 07/25/2025 7:27 PM [facility] ALT 50 16 - 63 U/L 07/25/2025 4:06 PM [facility] TOTAL PROTEIN S/P/B 6.7 6.4 - 8.2 G/DL 07/25/2025 4:06 PM [facility] ALBUMIN S/P/B 4.4 3.4 - 5.0 G/DL 07/25/2025 4:06 PM [facility] ANION GAP 6.2 5 - 15 MMOL/L 07/25/2025 4:06 PM POOL ATTENDANT [facility] Comment:REFERENCE RANGE NOT ESTABLISHED OSMOLALITY (CALC) 301 MOSM/KG 025 4:06 PM POOL ATTENDANT [facility] Comment:REFERENCE RANGE NOT ESTABLISHED GFR ESTIMATE 72(L) >90 ML/MIN/1. 73 M2 07/25/2025 4:06 PM POOL ATTENDANT [facility] GFR NOTES GFR REFERENCE S: 07/25/2025 4:06 PM POOL ATTENDANT [facility] Comment: THE ESTIMATED GFR IS CALCULATED [...] ml/min/1.73 m2 G5,KIDNEY FAILURE: <15 ml/min/1.73 m2 BLOOD VENOUS BLOOD SPECIMEN / Unknown 07/25/2025 7:45 AM POOL ATTENDANT Ron Castellanos MD LABORATORY Final Result [facility] [address] [place] [address], * CBC W/DIFF (07/25/2025 7:45 AM POOL ATTENDANT) WBC 6.10 4.00 - 10.80 x10'3/uL 07/25/2025 2:28 PM POOL ATTENDANT [facility] RBC 4.74 4.50 - 6.10 x10'6/uL 07/25/2025 2:28 PM POOL ATTENDANT [facility] HGB 14.6 13.0 - 18.0 G/DL 07/25/2025 2:28 PM [facility] HCT 42.8 37.0 - 52.0 % 07/25/2025 2:28 PM [facility] MCV 90.3 78.0 - 100.0 FL 07/25/2025 2:28 PM [facility] MCH 30.8 27.0 - 31.0 PG 07/25/2025 2:28 PM [facility] MCHC 34.1 33.0 - 36.0 G/DL 07/25/2025 2:28 PM [facility] RDW 12.5 11.5 - 14.5 % 07/25/2025 2:28 PM [facility] PLT 173 150 - 350 x10'3/uL 07/25/2025 2:28 PM [facility] MPV 10.2 7.4 - 10.4 FL 07/25/2025 2:28 PM [facility] DIFFERENTIAL TYPE AUTOMATED DIFFERENTIAL 07/25/2025 2:28 PM [facility] NEUTROPHILS % 63.6 % 07/25/2025 2:28 PM [facility] LYMPHOCYTES % 26.6 % 07/25/2025 2:28 PM [facility] MONOCYTES % 8.5 % 07/25/2025 2:28 PM [facility] EOSINOPHILS % 0.8 % 07/25/2025 2:28 PM [facility] BASOPHILS % 0.5 % 07/25/2025 2:28 PM [facility] IMMATURE GRANS % 0.0 % 07/25/2025 2:28 PM [facility] ABS. NEUTROPHILS 3.88 1.60 - 8.30 x10'3/uL 07/25/2025 2:28 PM [facility] ABS. LYMPHOCYTES 1.62 0.80 - 4.70 x10'3/uL 07/25/2025 2:28 PM POOL ATTENDANT [facility] ABS. MONOCYTES 0.52 0.00 - 1.50 x10'3/uL 07/25/2025 2:28 PM POOL ATTENDANT [facility] ABS. EOSINOPHILS 0.05 0.00 - 0.40 x10'3/uL 07/25/2025 2:28 PM POOL ATTENDANT [facility] ABS. BASOPHILS 0.03 0.00 - 0.20 x10'3/uL 07/25/2025 2:28 PM POOL ATTENDANT [facility] ABS. IMMATURE GRANULOCYTES 0.00 0.00 - 0.03 x10'3/uL 07/25/2025 2:28 PM POOL ATTENDANT [facility] BLOOD VENOUS BLOOD SPECIMEN / Unknown 07/25/2025 7:45 AM POOL ATTENDANT us Ron Castellanos MD LABORATORY Final Result Performing Organization Address City/[facility]/ZIP Co de Phone Number [address] [address], * TSH W/REFLEX (07/25/2025 7:45 AM POOL ATTENDANT) [facility] TSH 1.266 0.358 - 3.740 uIU/ML 07/25/2025 4:06 PM POOL ATTENDANT [facility] BLOOD VENOUS BLOOD SPECIMEN / Unknown 07/25/2025 7:45 AM POOL ATTENDANT us Ron Castellanos MD LABORATORY Final Result Performing Organization Address City/[facility] Co de Phone Number [address] [address], * (ABNORMAL) COLOGUARD (EXACT SCIENCE) (06/19/2024 8:30 AM POOL ATTENDANT) Pathologist [facility] COLOGUARD RESULT Positive( A) Negative [facility] (CLIA #:[id number]) Comment: POSITIVE TEST RESULT. A positive Cologuard [...] (Douglas Luong al, N Engl J Med 2014;370(14):9424-2073.) Cologuard may produce a false negative or false positive result (no colorectal cancer or precancerous polyp present at colonoscopy follow up). A negative Cologuard test result does not guarantee the absence of CRC or advanced adenoma (pre-cancer). The current Cologuard screening interval is every 3 years. ([place] [employer] Society and U.S. Multi-Society Task Force). Cologuard performance data in a 10,000 patient pivotal study using colonoscopy as the reference method can be accessed at the following location: www.[employer]/results. Additional description of the Cologuard test process, warnings and precautions can be found at www.[employer].com. STOOL STOOL SPECIMEN / Unknown 06/19/2024 8:30 AM POOL ATTENDANT 06/20/2024 9:39 AM POOL ATTENDANT us Ron Castellanos MD BODY FLUIDS AND STOOLS ORDERABLE S Final Result [facility]) [address] [place] [address], [facility] (CLIA #:[id number]) [address] [place] [address] * HEPATITIS C ANTIBODY (05/29/2024 7:38 AM CDT) HEPATITIS C AB NON-REACTI VE NON-REACT URMILA 05/29/2024 6:54 PM CDT [facility] Comment: ANTIBODIES TO HCV NOT DETECTED. DOES NOT EXCLUDE THE POSSIBILITY OF EXPOSURE TO HCV. 05/29/2024 7:38 AM CDT Ron Castellanos MD LABORATORY Final Result Performing Organization Address City/[facility] Co de Phone Number [facility] [address] [place] [address], [phone] from Last 3 Months or Most Recently Relevant to Health Maintenance Insurance Care Teams Senior Javascript Engineer Relationship Specialty Start Date End Date Ron Castellanos MD [address] [facility] [address] [place] [address] PCP - General INTERNAL MEDICINE 03/27/24
--- OUTSIDE RECORDS SUMMARY | 2025-08-10 11:50 | XMS_ITS | Patient Health Record ---
Author Organization [facility] [employer] [place] ([address]) Address [address] [place] [address] Care Team Providers Care Database Management Specialist Name Role Phone Isidro CARDENAS, Paco Primary Care Provider Alex Celis Dr. 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 Problem Chronic migraine without aura, non-refractory (disorder) (867122474820551 ) Migraine without aura, not intractable, without status migrainosus (G43.009) Active confirmed Problem Migraine with aura (5711073) Migraine with aura, not intractable, without status migrainosus (G43.109) Active confirmed Problem Chronic urate nephropathy (763721126) Gout due to renal impairment, multiple sites (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
[2025-08-10 12:00] VITALS: BP 123/87; PULSE 71; RESP 18; TEMP 36.7; O2SAT 98
--- NOTE | 2025-08-10 12:14 | ED.GENADULT ---
HPI - General Adult General Chief complaint: Upper Respiratory Infection Stated complaint: LT Ear Pain / Cough Time Seen by Provider: 08/10/25 12:14 Source: patient Mode of arrival: ambulatory Limitations: no limitations History of Present Illness HPI narrative: 49-year-old male patient presents to the [facility] with complaints of left ear pain, left-sided sore throat, nausea, vomiting, fatigue body aches and chills. Patient states he has had a little bit of some congestion runny nose for the past week but the rest of the symptoms really just started yesterday. Denies any fever that he is aware of. Related Data Home Medications ?Medication ?Instructions ?Recorded ?Confirmed ?Last Taken ?Type amlodipine 10 mg tablet mg 02/12/25 03/14/25 Unknown History lisinopril 10 mg tablet mg 02/12/25 03/14/25 Unknown History Allergies Allergy/AdvReac Type Severity Reaction Status Date / Time No Known Allergies Allergy Verified 08/10/25 12:11 Review of Systems Review of Systems: CONSTITUTIONAL: Denies fever, Positive body aches and chills, denies sweats. pus fatigue EYES: Denies visual changes, redness, or discharge. ENT: positive rhinorrhea, congestion, sore throat, and left otalgia. CARDIOVASCULAR: Denies chest pain, palpitations, or edema. RESPIRATORY: Denies cough or dyspnea. GASTROINTESTINAL: Denies abdominal pain, positive nausea, vomiting, denies diarrhea. GENITOURINARY: Denies dysuria or hematuria. SKIN: Denies rash or itching. MUSCULOSKELETAL: Denies back pain, joint pain, or myalgia. NEUROLOGIC: Denies headache, numbness, or weakness. PSYCHIATRIC: Denies anxiety or depression. [facility] Past Medical History Medical History (Updated 08/10/25 @ 12:53 by Naomy Haskins APRN) Essential hypertension Hyperlipidemia Complete left bundle branch block (LBBB) determined by ECG Elevated liver enzymes Bunionette of left foot Closed fracture of left great toe BMI 26.0-26.9,adult COVID Gout Surgical History Surgical History History of eye surgery H/O wrist surgery Family History Family History Father Atherosclerotic heart disease of nonautologous biological bypass graft Celiac disease Mother Hypertension Sibling No problems noted. 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 There is no relevant family history pertinent to the presenting complaint. Exam Narrative: GENERAL: Well-appearing, well-nourished, and in no acute distress. HEAD: Normocephalic, atraumatic. EYES: PERRLA and EOMI. ENT: Nares with erythema edema noted bilaterally, no rhinorrhea or epistaxis. Mucous membranes moist. posterior pharynx with some postnasal drip. Bilateral TMs do appear to have little bit of fluid behind them. NECK: Supple. Cervical lymphadenopathy with tenderness noted on palpation CHEST: Clear to auscultation. No respiratory distress. HEART: Regular rate and rhythm. No murmur heard. Normal peripheral pulses. ABDOMEN: Soft, flat, nondistended. No guarding, rebound tenderness, or rigid. No pulsatilla masses. Bowel sounds present in all four quadrants. No organomegaly. Negative Thomason?s sign. No periumbicial tenderness. No Supra public tenderness or distension. Good femoral pulses bilaterally. No hernia noted. No scars or surface trauma. EXTREMITIES: Normal range of motion. No edema. SKIN: Warm, dry, no rash. NEURO: No focal deficits. Alert and oriented x3. Course Course Level of Care: Express Care Visit Reevaluation(s) Reevaluation #1: re-evaluated patient notified him that his strep test today is positive. We will discharge him home with antibiotics for the strep infection and as well as some Zofran to help with any nausea vomiting that may still be occurring. Patient verbalized understanding denies any questions or concerns at this time. Date: 08/10/25 Time: 12:55 Vital Signs Vital signs: Vital Signs Temperature 36.7 C 08/10/25 12:00 Pulse Rate 71 08/10/25 12:00 Respiratory Rate 18 08/10/25 12:00 Blood Pressure 123/87 08/10/25 12:00 Pulse Oximetry 98 08/10/25 12:00 Oxygen Delivery Room Air 08/10/25 12:00 Temperature 36.7 C 08/10/25 12:00 Pulse Rate 71 08/10/25 12:00 Respiratory Rate 18 08/10/25 12:00 Blood Pressure 123/87 08/10/25 12:00 Pulse Oximetry 98 08/10/25 12:00 Oxygen Delivery Room Air 08/10/25 12:00 Vital signs reviewed. The patient has been informed that they may have pre-hypertension or Hypertension based on a BP reading in the department. I recommend that the patient call the primary care provider listed on their discharge instructions or a physician of their choice this week to arrange follow up for further evaluation of possible pre-hypertension or Hypertension MDM MDM Narrative Medical decision making narrative: plan care patient is tested today for flu, COVID and strep since he does have some swollen lymph nodes and other concerning symptoms that may be associated with flu or strep. I will reassess him once this has resulted. Differential Diagnosis Differential Diagnosis: Differential diagnosis: Otitis media, otitis externa, perforated TM, infection of the outer ear, foreign body or cerumen impaction, ruptured TM, acute mastoiditis, ligament otitis externa, dehydration, pneumonia, sepsis, dental or intraoral infection, TMJ dysfunction Lab Data Labs: Lab Results 08/10/25 Range/Units 12:46 POC Grp A Strep Screen Positive (Negative) Critical Care Time Critical Care Time Critical Care Time: No Discharge Plan Discharge Clinical Impression: Acute streptococcal pharyngitis Patient Disposition: Home Condition: Stable Instructions: Antibiotic Form, Strep Throat (ED) Additional Instructions: -Take the medication as prescribed. Throw away the toothbrush after 24hours of antibiotic. -Eat things that are easy to swallow, like tea or soup, or popsicles to suck on. You might not feel like eating or drinking, but it's important that you get enough liquids. -Oral rinses such as: Salt water gargles and/or may use topical anesthetic (eg. Chloraseptic spray) or lozenges to relieve dryness or throat pain). -Take Tylenol and ibuprofen as needed for pain and fever as directed. -Frequent hand washing or hand site manager is one of the best ways to prevent spread of infection. -Follow up with primary care provider in 2-3 days if condition is not improving or seek ER visit if you start breathing fast/has trouble breathing, is not drinking enough fluids, muffle voice, difficulty opening the mouth. Patient Language: [place] Prescriptions: New amoxicillin 500 mg tablet 500 mg PO Q12H 10 Days Qty: 20 0RF ondansetron 4 mg tablet,disintegrating 4 mg PO Q6H PRN (Reason: nausea and vomiting) Qty: 7 0RF No Action amlodipine 10 mg tablet lisinopril 10 mg tablet rosuvastatin [Crestor] 20 mg tablet 20 mg PO DAILY Qty: 90 3RF allopurinol 300 mg tablet 300 mg PO DAILY Qty: 90 1RF Follow-up/Referrals: Jasmin,MD Ron [Primary Care Provider, Unknown] Time of Disposition: 12:55
[2025-08-10 12:48] LABS: EDSTREPNEGPOS1 Positive (Negative)
[2025-08-10 12:58] LABS: EDCOVIDSCREEN Negative (Negative); EDINFLUASCREEN Negative (Negative); EDINFLUBSCREEN Negative (Negative)
== END 2025-08-10 13:18 | disposition home or self-care (01) ==
PROVIDERS: Emergency Provider Nurse Practitioner Family; PCP Internal Medicine
DX: J02.0 Streptococcal pharyngitis (principal); Z20.822 Contact with and (suspected) exposure to COVID-19; Z87.891 Personal history of nicotine dependence; I10 Essential (primary) hypertension; E78.5 Hyperlipidemia, unspecified; M10.9 Gout, unspecified; Z86.16 Personal history of COVID-19
CPT/HCPCS: 87426; 87804; 87880; 99213; G0463